=== PATIENT | male | born 1960 | race Caucasian/White ===

== ENCOUNTER → 2016-09-04 | Outpatient (CLI) | payer MEDICARE ==
--- NOTE | 2016-09-04 13:05 | MR ---
EXAMINATION TYPE: MR shoulder LT wo con DATE OF EXAM: 09/04/2016 9:42 AM COMPARISON: Prior shoulder MRI September 2015 HISTORY: RCT, left shoulder pain for years, prior surgery. TECHNIQUE: Multiplanar, multisequence imaging of the left shoulder is performed without contrast. FINDINGS: Rotator Cuff: There is been interval rotator cuff surgery, susceptibility artifact due to screws with in the proximal humeral head noted. Recurrent rotator cuff tear is present, there is retraction of th e supraspinatus tendon to the level of the acromioclavicular joint. Acromioclavicular Joint: Hypertrophic change is present. Glenohumeral Joint: The humerus is high riding. There is some remodeling of the glenohumeral joint. Labrum: Superior labrum shows some irregular signal and appearance suggestive of degenerative tear. S ubchondral geode formation present in the bony labrum, there is a joint effusion. Biceps Tendon: Not well seen Bone marrow signal: Marrow edema suspected within the humeral head although there may be reactive teddy nges, there is subchondral cystic change within the humeral head. Other: Distal acromial spur is present. Grade IV chondromalacia in the labral cartilage. IMPRESSION: Recurrent rotator cuff tear, postop changes. Additional findings above.
== END | disposition home or self-care (01) ==
LOC: RADMRIMAIN 09:09
PROVIDERS: ATTEND Orthopaedic Surgery
DX: M75.102 Unspecified rotator cuff tear or rupture of left shoulder, not specified as traumatic (principal); Z98.890 Other specified postprocedural states

== ENCOUNTER → 2017-09-12 | Outpatient (CLI) | payer MEDICARE ==
--- NOTE | 2017-09-12 15:41 | US ---
EXAMINATION TYPE: US thyroid st tissue head/neck DATE OF EXAM: 09/12/2017 COMPARISON: Prior carotid ultrasound July 25, 2017 CLINICAL HISTORY: E04.1 Thyroid Nodule. nodule seen on the left by previous carotid us in Aug 03 GLAND SIZE: Right Lobe: 4.9 x 1.3 x 1.8 cm Overall Parenchyma: heterogenous Left Lobe: 4.4 x 1.4 x 1.5 cm Overall Parenchyma: heterogeneous Isthmus Thickness: 0.3 cm NODULES RIGHT: # of nodules measured on right: 1 1. 0.6 X 0.4 x 0.6 cm cystic nodule at the upper pole with well-defined margins. This nodule is wi ervin than tall and shows . Prior size: DECISION SUPPORT MANAGER LEFT: # of nodules measured on left: 1 1. 1.5 X 1.3 x 1.1 cm mixed nodule at the lower pole with well-defined margins; . This nodule is w ider than tall and shows no intranodular vascularity. Prior size: DECISION SUPPORT MANAGER ISTHMUS: # of nodules measured in the isthmus: 0 Bilateral neck scanned, no evidence of lymphadenopathy. Thyroid gland is normal in size and heterogeneous appearance, there is 6 mm cystic nodule noted right thyroid lobe, there is larger 1.5 cm predominantly cystic nodule lower pole level left thyroid IMPRESSION: Thyroid gland is normal in size and heterogeneous in appearance with dominant 1.5 cm predominantly cy stic mixed nodule lower pole level noted. This correlates with recent carotid ultrasound lesion. Need to further investigate by possible biopsy should be based on clinical correlation.
== END | disposition home or self-care (01) ==
LOC: RADUSWWP 14:12
PROVIDERS: ATTEND Family Medicine
DX: E04.1 Nontoxic single thyroid nodule (principal)
CPT/HCPCS: 76536

== ENCOUNTER 2017-12-19 12:19 | Day surgery (SDC) | payer MEDICARE ==
[2017-12-19 12:50] VITALS: TEMP 98.1
[2017-12-19 13:47] VITALS: BP 111/56; PULSE 90; RESP 16
--- NOTE | 2017-12-19 13:53 | US ---
ULTRASOUND GUIDED FNA THYROID BIOPSY: CLINICAL HISTORY: Left thyroid nodule FINDINGS: The procedure was explained to the patient. The risks, complications, benefits and alternatives were discussed and any questions were answered. Informed consent was obtained. Patient was placed supin e on the ultrasound table and prepped and draped in the usual sterile fashion. Utilizing a 25 gauge needle, five passes were made into the requested thyroid nodule. Patient was stable throughout the procedure. Pathology is pending. All elements of maximal barrier technique were utilized. IMPRESSION: 1. Successful ultrasound guided FNA thyroid biopsy.
== END 2017-12-19 13:47 | disposition home or self-care (01) ==
LOC: RADPROMAIN 12:19
PROVIDERS: ATTEND Family Medicine
DX: E04.1 Nontoxic single thyroid nodule (principal)
CPT/HCPCS: 10022; 76942; 88173; 88305

== ENCOUNTER → 2018-03-25 | Outpatient (CLI) | payer MEDICARE ==
--- NOTE | 2018-03-25 16:46 | CONS ---
CONSULTATION This is a consultation note for sleep apnea. This is a 57-year-old male patient diagnosed having obstructive sleep apnea in 2009 with an AHI of 71 and currently he is using CPAP at a pressure of 10 cm of water. He is using a nasal pillow along with a chin strap. He has been on CPAP for many years. On and off he quit using the treatment; however, over the past 3-4 months he is back using the CPAP as the patient has become more symptomatic and he is snoring loud and he was having excessive hypersomnia and sleepiness during the day. The patient is going to bed around 9 p.m., wakes up between 3 to 4 a.m. in the morning. He averages around 6 hours of sleep. At times, he wakes up with dry mouth. No nocturia. Denies waking up choking, gasping for air. His weight has been essentially stable over the past 10 years without any significant weight gain or weight loss. PAST MEDICAL HISTORY: Obstructive sleep apnea, BPH, nasal polyps status post polypectomy, hypothyroidism, bronchial asthma and allergies. PAST SURGICAL HISTORY: Includes nasal polyp removal. DRUG ALLERGIES: Not known. He has got a HAY FEVER AND BEE STING ALLERGIES. OUTPATIENT MEDICATION: Includes tamsulosin, levothyroxine, Singulair, sildenafil, Claritin, Precose and ProAir. SOCIAL HISTORY: The patient is a nonsmoker. No history of alcohol. No history of IV drugs. FAMILY HISTORY: Negative for sleep apnea. REVIEW OF SYSTEMS: 12-point review of system was done. Positive findings are mentioned above history of present illness. He has been quite sleepy for many years and sleep apnea. Treatment with CPAP has improved his daytime sleepiness. He tries to sleep on his back. He takes it takes a few minutes to fall asleep. No dreams. No nightmares. No sleep paralysis. No hallucinations. No cataplexy. He has no sleepwalking or sleep talking. No restlessness in lower extremities. No anxiety or panic attacks. No palpitations. PHYSICAL EXAMINATION: BP is 111/77, pulse 76, respirations 16, temperature 98.4, saturation 98% on room air. Weight is 166, height 5 feet 7 inches, neck size is 15-1/2 inches. GENERAL APPEARANCE: Calm, comfortable. Head is atraumatic normocephalic. NECK: Supple. There is no JVD. No goiter or neck masses. LUNGS: Clear to auscultation. HEART: Sounds are regular. Normal S1, S2. No S3. No murmurs. ABDOMEN: Soft, nontender. No organomegaly. EXTREMITIES: No edema. No cyanosis or clubbing. IMPRESSION: 1. Symptomatic obstructive sleep apnea severe at baseline with an AHI of 71 currently on CPAP pressure of 10 cm of water. 2. Hypersomnia, improved with CPAP therapy. 3. Benign prostatic hypertrophy. 4. History of nasal polyposis with chronic rhinitis with post polypectomy. 5. Hypothyroidism. 6. Bronchial asthma. 7. Environmental allergies. PLAN: Continue the patient's CPAP supplies. I will provided the patient AirFit P10 small size nose pillows along with a chin strap. The patient has an older generation Respironics unit which will need to be upgraded at a later stage. This was suggested to him and he is not ready for upgrade yet as long as the machine is working and this may be done probably within next day or 2. CPAP supplies will be renewed. Compliancy will be followed up. We will continue to follow here in the sleep center. See me back in a year's time and follow up earlier if needed. MMODL / IJN: [id number] /
== END | disposition home or self-care (01) ==
LOC: SLEEP 14:01
PROVIDERS: ATTEND Internal Medicine Critical Care Medicine
DX: G47.33 Obstructive sleep apnea (adult) (pediatric) (principal); N40.0 Benign prostatic hyperplasia without lower urinary tract symptoms; E03.9 Hypothyroidism, unspecified; J45.909 Unspecified asthma, uncomplicated; Z91.048 Other nonmedicinal substance allergy status; Z99.89 Dependence on other enabling machines and devices; Z87.09 Personal history of other diseases of the respiratory system; Z98.890 Other specified postprocedural states
CPT/HCPCS: 99211

== ENCOUNTER → 2018-11-20 | Outpatient (CLI) | payer MEDICARE ==
--- NOTE | 2018-11-20 13:17 | US ---
EXAMINATION TYPE: US abdomen complete DATE OF EXAM: 11/20/2018 COMPARISON: Prior ultrasound abdomen 10/27/2013 CLINICAL HISTORY: R10.11 right upper quadrant pain, intermittent, severe for 3 days, now better. EXAM MEASUREMENTS: Liver Length: 11.3 cm Gallbladder Wall: Surgically absent CBD: 0.3 cm Spleen: 9.2 cm Right Kidney: 11.8 x 4.4 x 5.1 cm Left Kidney: 11.3 x 5.5 x 5.0 cm Pancreas: portions visualized wnl, partially obscured by overlying bowel gas Liver: wnl Gallbladder: Surgically absent Evidence for sonographic Becker's sign: no CBD: wnl Spleen: wnl Right Kidney: scattered echogenic foci, small echogenic foci suggestive stones vs. arterial calcific ations Left Kidney: scattered echogenic foci, small echogenic foci suggestive of stones vs. arterial calcifi cations Upper IVC: wnl Abd Aorta: mild atherosclerotic changes The liver is homogenous. The intrahepatic portion of the IVC and proximal abdominal aorta are within normal limits. There is no evidence of cholelithiasis. Common bile duct is unremarkable. The visu alized portions of the pancreas are homogenous. The spleen is unremarkable. Kidneys are symmetric a nd free of hydronephrosis, cortical medullary differentiation maintained. There is no ascites. IMPRESSION: Findings are similar to prior exam. Possible punctate nephrolithiasis or arterial calcifi cations. Postop change.
== END | disposition home or self-care (01) ==
LOC: RADUSWWP 09:37
PROVIDERS: ATTEND Family Medicine
DX: R10.11 Right upper quadrant pain (principal); Z98.890 Other specified postprocedural states
CPT/HCPCS: 76700

== ENCOUNTER 2020-04-20 09:47 | Day surgery (SDC) | payer MEDICARE ==
[2020-04-17 15:24] VITALS: BMI 26.4
[~2020-04-20 09:47] MED LIST: LACTATED RINGERS 1,000 ML IV SCH
[2020-04-20 10:34] VITALS: RESP 16; TEMP 98.1
[2020-04-20] MEDS ORDERED: PROPOFOL 10 MG/ML 20 ML VIAL IV ONE (10:45)
[2020-04-20] MEDS ORDERED: LIDOCAINE 1% INJ 10MG/ML (20 ML MDV) ONE (10:45)
--- NOTE | 2020-04-20 11:03 | P.PCN ---
Date of Procedure: 04/20/20 Procedure(s) Performed: BRIEF HISTORY: Patient is a 59-year-old pleasant white male scheduled for an elective colonoscopy as a part of evaluation of prior history of colon polyps. His last colonoscopy was 4 years ago. PROCEDURE PERFORMED: Colonoscopy with snare polypectomy. PREOPERATIVE DIAGNOSIS: History of colon polyps. IV sedation per Anesthesia. PROCEDURE: After informed consent was obtained, the patient, was brought into the endoscopy unit. IV sedation was administered by Anesthesia under continuous monitoring. Digital rectal examination was normal. Initially the Olympus CF-160 flexible video colonoscope was then inserted in the rectum, gradually advanced into the cecum without any difficulty. Careful examination was performed as the scope was gradually being withdrawn. Ileocecal valve and the appendiceal orifice were visualized and appeared normal. Prep was excellent. Mucosa of the cecum, ascending colon, transverse colon, descending colon, sigmoid colon, and rectum appeared normal. In the proximal rectum there was a 1.5 cm broad-based polyp removed by snare polypectomy. Retroflexion was performed in the rectum and no lesions were seen. The patient tolerated the procedure well. IMPRESSION: 1.5 cm broad-based proximal rectal polyp status post polypectomy Rest of the colon appeared normal RECOMMENDATIONS: Findings of this examination were discussed with the patient as well as his family. He was advised to follow with the biopsy results. If the biopsy shows an adenoma he can have a repeat colonoscopy in 3 years.
[2020-04-20 11:22] VITALS: BP 126/85; PULSE 62
== END 2020-04-20 12:03 | disposition home or self-care (01) ==
LOC: ORWHC2ENDO 09:47
PROVIDERS: ATTEND Internal Medicine Gastroenterology
DX: Z12.11 Encounter for screening for malignant neoplasm of colon (principal); D12.8 Benign neoplasm of rectum; Z86.010 Personal history of colon polyps; I10 Essential (primary) hypertension; E78.5 Hyperlipidemia, unspecified; J45.909 Unspecified asthma, uncomplicated; G47.33 Obstructive sleep apnea (adult) (pediatric); E07.9 Disorder of thyroid, unspecified; M19.90 Unspecified osteoarthritis, unspecified site; K21.9 Gastro-esophageal reflux disease without esophagitis; Z87.891 Personal history of nicotine dependence; Z88.0 Allergy status to penicillin; Z79.899 Other long term (current) drug therapy; Z98.890 Other specified postprocedural states
CPT/HCPCS: 88305; 45385; J2001; J2704

== ENCOUNTER 2020-05-18 09:21 | Day surgery (SDC) | payer MEDICARE ==
[2020-05-17 08:55] VITALS: BMI 25.3
--- NOTE | 2020-05-18 06:51 | P.GSHP ---
History of Present Illness H&P Date: 05/18/20 CHIEF COMPLAINT: Scalp mass HISTORY OF PRESENT ILLNESS: Leodan Duran is a 59-year-old male who comes in for the first time in consultation due to persistent cyst along the scalp that has been ongoing for over one year. He reports that it had itched in the past. No reports of drainage. No reports of prior events. Separately, he recently had a colonoscopy within the last two weeks with history of polyps. He does have a family history of skin cancer whereby his father was a gravel roofer and had multiple skin lesions. He reports multiple cuts on the hand. PAST MEDICAL HISTORY: Please see list. PAST SURGICAL HISTORY: Please see list. MEDICATIONS: Please see list. ALLERGIES: Please see list. SOCIAL HISTORY: No illicit drug use FAMILY HISTORY: No reports of Crohn disease or ulcerative colitis. REVIEW OF ORGAN SYSTEMS: Additionally reports: CONSTITUTIONAL: No fevers or chills. No recent weight loss. EYES: Denies any trouble with vision. No glasses. HEENT: No difficulties with hearing. No nosebleeds. No difficulty swallowing. PHYSICAL EXAM: VITAL SIGNS: Stable Patient is a 59-year-old female. Skin: 1.5 cm lesion along the right parietal scalp. No lymph nodes noted. The rest of skin surveillance performed along the anterior chest, back, and arms without evidence of malignancy. A few benign nevus along the back, less than 2 mm. CONSTITUTIONAL: Well developed and in no acute distress. Vitals reviewed. EYES: Conjuctivae without sclera icterus. Pupils are equally round and reactive to light. Extraocular movements grossly intact. HEAD, EARS, NOSE, THROAT: Moist buccal mucosa. Head is atraumatic, normocephalic. Hears conversational speech. No nasal drainage. NECK: Supple. No JV distention. No thyroidomegaly. RESPIRATORY: Non-labored respirations and equal bilateral excursions. No gross wheezes. CARDIOVASCULAR: Regular rate and rhythm. Extremities without moderate edema. Palpable 2+ radial pulses. ABDOMEN: No hepatomegaly. Soft. Non-tender. Nondistended. LYMPH: No neck lymphadenopathy. No axillary lymphadenopathy. MUSCULOSKELETAL: Nail and fingers with good capillary refill. NEUROLOGIC: Cranial nerves I through XII grossly intact. Sensation upper and extremities intact. No focal or lateralizing signs. PSYCH: Appropriate affect. Alert and oriented to person, place and time. Displays appropriate insight. ASSESSMENT: 1. Epidermoid cyst of the scalp. PLAN: 1. Excision of scalp neoplasm described. 2. As the lesion is on the scalp, likely general anesthetic recommended and is elevated risk. Past Medical History Past Medical History: Asthma, GERD/Reflux, Hyperlipidemia, Hypertension, Osteoarthritis (OA), Skin Disorder, Sleep Apnea/CPAP/BIPAP, Thyroid Disorder Additional Past Medical History / Comment(s): Lumbar herniated disc, heart mumur, hypothyroidism, cpap set at 2, psoriasis, hx polyps. History of Any Multi-Drug Resistant Organisms: None Reported Past Surgical History: Cholecystectomy, Orthopedic Surgery Additional Past Surgical History / Comment(s): Bilateral shoulder rotator cuff repair and L shoulder has retorn and cannot be repaired. Lumbar back epidural steroid injections and L shoulder steroid injections. Past Anesthesia/Blood Transfusion Reactions: No Reported Reaction Additional Past Anesthesia/Blood Transfusion Reaction / Comment(s): Pt has never recieved blood. Past Psychological History: No Psychological Hx Reported Smoking Status: Former smoker Past Alcohol Use History: None Reported Additional Past Alcohol Use History / Comment(s): Smoker off and on since high school, quit in 2019. Past Drug Use History: None Reported - Past Family History Mother Family Medical History: Coronary Artery Disease (CAD), Dementia Additional Family Medical History / Comment(s): Mother is alive and 83 yrs old. Father Family Medical History: Cancer, CVA/TIA, Osteoarthritis (OA) Additional Family Medical History / Comment(s): Father is alive at age 92 yrs old. Skin melanoma. Medications and Allergies Home Medications Medication Instructions Recorded Confirmed Type Clobetasol Propionate [Temovate 1 applic TOPICAL BID 09/08/14 05/17/20 History 0.05% Cream] Dovonex 0.005% Cream 1 applic TOPICAL BID 09/08/14 05/17/20 History Levothyroxine Sodium [Levoxyl] 88 mcg PO QAM 09/08/14 05/17/20 History Lisinopril [Prinivil] 5 mg PO QAM 09/08/14 05/17/20 History Loratadine [Claritin] 10 mg PO DAILY 09/08/14 05/17/20 History Metoclopramide [Reglan] 10 mg PO TID PRN 09/08/14 05/17/20 History Omeprazole [PriLOSEC] 20 mg PO AC-BRKFST 09/08/14 05/17/20 History mg Trisilicate/Alh/Nahco3/Aa 1 each PO HS PRN 09/08/14 05/17/20 History [Gaviscon 80-14.2 mg Tab Chew] Albuterol Inhaler [Ventolin Hfa 1 puff INHALATION DAILY 04/17/20 05/17/20 History Inhaler] Tamsulosin [Flomax] 0.4 mg PO DAILY 04/17/20 05/17/20 History Allergies Allergy/AdvReac Type Severity Reaction Status Date / Time Penicillins Allergy Severe Unknown Verified 04/20/20 10:25 Childhood Beef Containing Products AdvReac Stomach Verified 04/20/20 10:25 Cramps
[~2020-05-18 09:21] MED LIST changes: +CLINDAMYCIN 600 MG in DEXTROSE 5% IN WATER 50 ML IVPB STA; +DEXAMETHASONE SOD PHOSPHATE 10 MG/ML 1 ML VIAL IV ONE; +HYDROmorphone 0.5 MG/0.5 ML SYRINGE IVP PRN; +ONDANSETRON 4 MG/2 ML VIAL IVP ONE; +Pre Op ABX Message 1 EACH MISC MISCELLANE ONE
[2020-05-18 09:38] VITALS: RESP 16
[2020-05-18] MEDS ORDERED: SUCCINYLCHOLINE CHLORIDE 100 MG/5 ML SYR IV ONE (11:15)
[2020-05-18] MEDS ORDERED: fentaNYL (PF) 50 MCG/ML 2 ML AMP ONE (11:15)
[2020-05-18] MEDS ORDERED: MIDAZOLAM 2 MG/2 ML VIAL ONE (11:15)
[2020-05-18] MEDS ORDERED: PHENYLEPHRINE-0.9% NACL SYG 1 MG/10 ML SYRINGE ONE (11:15)
[2020-05-18] MEDS ORDERED: LIDOCAINE 1% INJ 10MG/ML (20 ML MDV) ONE (11:15)
[2020-05-18] MEDS ORDERED: PROPOFOL 10 MG/ML 20 ML VIAL IV ONE (11:15)
[2020-05-18] MEDS ORDERED: LIDOCAINE 1%-EPI 1:100,000 20 ML VIAL SQ ONE (11:48)
[2020-05-18 12:34] VITALS: TEMP 96.9
--- NOTE | 2020-05-18 12:42 | P.OP ---
Date of Procedure: 05/18/20 Description of Procedure: SURGEON: NEREIDA SLOAN MD WAX BLENDER: None. PREOPERATIVE DIAGNOSES: 1. Right parietal scalp tumor 2. Hypothyroidism 3. Asthma 4. Obstructive uropathy 5. Gastroesophageal reflux disease 6. Hypertensive heart disease 7. Obstructive sleep apnea POSTOPERATIVE DIAGNOSES: 1. Right parietal scalp cyst, 2 cm, subcutaneous 2. Hypothyroidism 3. Asthma 4. Obstructive uropathy 5. Gastroesophageal reflux disease 6. Hypertensive heart disease 7. Obstructive sleep apnea PROCEDURES PERFORMED: 1. Excision of deep subcutaneous right parietal cyst, 2 cm 2. Intermediate closure scalp incision, 3 cm Anesthesia: GETA, local Estimated Blood Loss (ml): 10 Pathology: other (scalp mass) Condition: stable Disposition: same day COMPLICATIONS: None. Operative Findings: 1. Excision of deep subcutaneous tumor, 2-cm INDICATIONS: The patient is a 59-year-old male who presents with symptomatic right scalp tumor. Benefits and risks of surgical intervention were described including bleeding, infection. Informed consent was obtained. DESCRIPTION OR PROCEDURE: In the preoperative area, the area of concern was marked with indelible marker. Patient was brought into the operating room. After general induction, he was positioned in left lateral decubitus position. The scalp was prepped and draped in a standard sterile fashion. Timeout protocol was confirmed with the surgical team regarding the patient's name, procedure to be performed including preoperative medications. DVT prophylaxis was confirmed. A field block was placed of the scalp. Hair was controlled using lubricant without shaving. A longitudinal incision was made using #15 blade into the deep subcutaneous tissue to the fascia. Electro-Bovie cautery was used to incise to the fascia with dissection and elevation of the mass including wall of the cyst. Skin flaps were elevated and developed circumferentially. Interrupted subcuticular sutures of 3-0 Vicryl was placed for the deep subcutaneous tissue. Final running suture of 3-0 Prolene was placed to close the dermis. The skin was cleansed with hydrogen peroxide followed by bacitracin ointment along the closure. At the end of the procedure, needle, sponge, and instrument count was verified correct by surgical oncologist. The patient tolerated the procedure well. Plan - Discharge Summary Discharge Rx Participant: No New Discharge Prescriptions: New Acetaminophen Tab [Tylenol Tab] 500 mg PO Q6H PRN #30 tablet PRN Reason: Pain Ibuprofen [Motrin] 600 mg PO Q8HR PRN #30 tab PRN Reason: Pain Continue Metoclopramide [Reglan] 10 mg PO TID PRN PRN Reason: stomach upset Loratadine [Claritin] 10 mg PO DAILY mg Trisilicate/Alh/Nahco3/Aa [Gaviscon 80-14.2 mg Tab Chew] 1 each PO HS PRN PRN Reason: heartburn Omeprazole [PriLOSEC] 20 mg PO AC-BRKFST Lisinopril [Prinivil] 5 mg PO QAM Levothyroxine Sodium [Levoxyl] 88 mcg PO QAM Dovonex 0.005% Cream 1 applic TOPICAL BID Clobetasol Propionate [Temovate 0.05% Cream] 1 applic TOPICAL BID Tamsulosin [Flomax] 0.4 mg PO DAILY Albuterol Inhaler [Ventolin Hfa Inhaler] 1 puff INHALATION DAILY Discharge Medication List Clobetasol Propionate [Temovate 0.05% Cream] 1 applic TOPICAL BID 09/08/14 [History] Dovonex 0.005% Cream 1 applic TOPICAL BID 09/08/14 [History] Levothyroxine Sodium [Levoxyl] 88 mcg PO QAM 09/08/14 [History] Lisinopril [Prinivil] 5 mg PO QAM 09/08/14 [History] Loratadine [Claritin] 10 mg PO DAILY 09/08/14 [History] Metoclopramide [Reglan] 10 mg PO TID PRN 09/08/14 [History] Omeprazole [PriLOSEC] 20 mg PO AC-BRKFST 09/08/14 [History] mg Trisilicate/Alh/Nahco3/Aa [Gaviscon 80-14.2 mg Tab Chew] 1 each PO HS PRN 09/08/14 [History] Albuterol Inhaler [Ventolin Hfa Inhaler] 1 puff INHALATION DAILY 04/17/20 [History] Tamsulosin [Flomax] 0.4 mg PO DAILY 04/17/20 [History] Acetaminophen Tab [Tylenol Tab] 500 mg PO Q6H PRN #30 tablet 05/18/20 [Rx] Ibuprofen [Motrin] 600 mg PO Q8HR PRN #30 tab 05/18/20 [Rx] Follow up Appointment(s)/Referral(s): Nereida Sloan MD [STAFF PHYSICIAN] - 05/23/20 4:45 pm Patient Instructions/Handouts: *Surgery [facility] - (Anesthesia) Discharge Instructions Outpatient Surgery, Scalp Lesion (GEN), Cold Compress or Soak (DC) Activity/Diet/Wound Care/Special Instructions: APPLY BACITRACIN OINTMENT DAILY Use ice along the dressing to minimize bruising. May gently wash around the dressing with baby shampoo Sleep on elevated pillows at least 2-3 to prevent swelling around the face and eyes. Bruising around the eyes resolve within 1-2 weeks. Please take Tylenol scheduled for next 2-3 day Discharge Disposition: HOME SELF-CARE
[2020-05-18 13:42] VITALS: BP 105/65; PULSE 73
== END 2020-05-18 14:18 | disposition home or self-care (01) ==
LOC: OR 09:21
PROVIDERS: ATTEND Surgery Plastic and Reconstructive Surgery
DX: L72.0 Epidermal cyst (principal); I11.9 Hypertensive heart disease without heart failure; J45.909 Unspecified asthma, uncomplicated; E78.5 Hyperlipidemia, unspecified; M19.90 Unspecified osteoarthritis, unspecified site; L40.9 Psoriasis, unspecified; G47.33 Obstructive sleep apnea (adult) (pediatric); E03.9 Hypothyroidism, unspecified; K21.9 Gastro-esophageal reflux disease without esophagitis; N13.9 Obstructive and reflux uropathy, unspecified; Z88.0 Allergy status to penicillin; Z90.49 Acquired absence of other specified parts of digestive tract; Z79.890 Hormone replacement therapy; Z79.899 Other long term (current) drug therapy; Z99.89 Dependence on other enabling machines and devices; Z98.890 Other specified postprocedural states; Z87.891 Personal history of nicotine dependence; Z82.49 Family history of ischemic heart disease and other diseases of the circulatory system; Z81.8 Family history of other mental and behavioral disorders; Z80.8 Family history of malignant neoplasm of other organs or systems; Z82.61 Family history of arthritis; Z91.018 Allergy to other foods
CPT/HCPCS: 88304; 11422; 12032; J2250; J1100; J2405; J2001; J3010; J2370; J0330; J2704

== ENCOUNTER 2024-11-17 19:32 | Emergency (ER) | payer MEDICARE ==
[2024-11-17 19:38] VITALS: PULSE 67; TEMP 98
--- NOTE | 2024-11-17 19:58 | ED ---
ENT HPI - General Chief complaint: Dental/Oral Stated complaint: throat swelling, abscess Time Seen by Provider: 11/17/24 19:39 Source: patient, RN notes reviewed Mode of arrival: ambulatory Limitations: no limitations - History of Present Illness Initial comments: This is a 63-year-old male presenting to the emergency department with referral from primary care provider's office for concern of throat pain. Patient states that yesterday morning when he woke up he began to experience pain of the right side of his throat that has worsened and states that he has been having difficult time swallowing over the past day. Patient was evaluated by his prima care provider where he is intact reports emergency department for further evaluation. He endorses chills with no reported fevers. Denies cough, rhinorrhea, congestion. Patient states that he is scheduled for multiple teeth to be extracted in the upcoming weeks. - Related Data Home Medications Medication Instructions Recorded Confirmed Clobetasol Propionate [Temovate 1 applic TOPICAL BID 09/08/14 05/17/20 0.05% Cream] Dovonex 0.005% Cream 1 applic TOPICAL BID 09/08/14 05/17/20 Levothyroxine Sodium [Levoxyl] 88 mcg PO QAM 09/08/14 05/17/20 Lisinopril [Prinivil] 5 mg PO QAM 09/08/14 05/17/20 Loratadine [Claritin] 10 mg PO DAILY 09/08/14 05/17/20 Metoclopramide [Reglan] 10 mg PO TID PRN 09/08/14 05/17/20 Omeprazole [PriLOSEC] 20 mg PO AC-BRKFST 09/08/14 05/17/20 mg Trisilicate/Alh/Nahco3/Aa 1 each PO HS PRN 09/08/14 05/17/20 [Gaviscon 80-14.2 mg Tab Chew] Albuterol Inhaler [Ventolin Hfa 1 puff INHALATION DAILY 04/17/20 05/17/20 Inhaler] Tamsulosin [Flomax] 0.4 mg PO DAILY 04/17/20 05/17/20 Previous Rx's Medication Instructions Recorded Acetaminophen Tab [Tylenol Tab] 500 mg PO Q6H PRN #30 tablet 05/18/20 Ibuprofen [Motrin] 600 mg PO Q8HR PRN #30 tab 05/18/20 clindamycin HCL 300 mg PO QID #40 cap 11/17/24 Allergies Allergy/AdvReac Type Severity Reaction Status Date / Time Penicillins Allergy Severe Unknown Verified 11/17/24 19:38 Childhood Beef Containing Products AdvReac Stomach Verified 11/17/24 19:38 Cramps Review of Systems ROS Statement: Those systems with pertinent positive or pertinent negative responses have been documented in the HPI. ROS Other: All systems not noted in ROS Statement are negative. Past Medical History Past Medical History: Asthma, GERD/Reflux, Hyperlipidemia, Hypertension, Osteoarthritis (OA), Skin Disorder, Sleep Apnea/CPAP/BIPAP, Thyroid Disorder Additional Past Medical History / Comment(s): Lumbar herniated disc, heart mumur, hypothyroidism, cpap set at 2, psoriasis, hx polyps. History of Any Multi-Drug Resistant Organisms: None Reported Past Surgical History: Cholecystectomy, Orthopedic Surgery Additional Past Surgical History / Comment(s): Bilateral shoulder rotator cuff repair and L shoulder has retorn and cannot be repaired. Lumbar back epidural steroid injections and L shoulder steroid injections. Past Anesthesia/Blood Transfusion Reactions: No Reported Reaction Additional Past Anesthesia/Blood Transfusion Reaction / Comment(s): Pt has never recieved blood. Past Psychological History: No Psychological Hx Reported Smoking Status: Former smoker Past Alcohol Use History: Occasional Past Drug Use History: None Reported - Past Family History Mother Family Medical History: Coronary Artery Disease (CAD), Dementia Additional Family Medical History / Comment(s): Mother is alive and 83 yrs old. Father Family Medical History: Cancer, CVA/TIA, Osteoarthritis (OA) Additional Family Medical History / Comment(s): Father is alive at age 92 yrs old. Skin melanoma. General Exam Limitations: no limitations General appearance: alert, in no apparent distress Expanded Teeth exam: Present: dental caries, fractured tooth #, dental tenderness #. Absent: normal inspection Throat exam: other (posterior oropharynx right sided erythema and mild edema, unable to fully visualize tonsils bilatearlly) Neck exam: Present: normal inspection. Absent: tenderness, meningismus, lymphadenopathy Respiratory exam: Present: normal lung sounds bilaterally. Absent: respiratory distress, wheezes, rales, rhonchi, stridor Cardiovascular Exam: Present: regular rate, normal rhythm, normal heart sounds. Absent: systolic murmur, diastolic murmur, rubs, gallop, clicks GI/Abdominal exam: Present: soft, normal bowel sounds. Absent: distended, tenderness, guarding, rebound, rigid Extremities exam: Present: normal inspection, full ROM, normal capillary refill. Absent: tenderness, pedal edema, joint swelling, calf tenderness Back exam: Present: normal inspection Course Vital Signs 11/17/24 11/17/24 19:35 21:52 Temperature 98 F Pulse Rate 67 67 Respiratory 18 16 Rate Blood Pressure 142/88 143/89 O2 Sat by Pulse 99 100 Oximetry Medical Decision Making - Medical Decision Making Was pt. sent in by a medical professional or institution (, PA, [employer], urgent care, hospital, or penitentiary...) When possible be specific @ -Patient was advised by primary care provider to report emergency room for further evaluation of throat swelling difficulty swallowing. Did you speak to anyone other than the patient for history (EMS, parent, family, police, friend...)? What history was obtained from this source @ -No Did you review nursing and triage notes (agree or disagree)? Why? @ -I reviewed and agree with nursing and triage notes Were old charts reviewed (outside hosp., previous admission, EMS record, old EKG, old radiological studies, urgent care reports/EKG's, penitentiary records)? Report findings @ -No old charts were reviewed Differential Diagnosis (chest pain, altered mental status, abdominal pain women, abdominal pain men, vaginal bleeding, weakness, fever, dyspnea, syncope, headache, dizziness, GI bleed, back pain, seizure, CVA, palpatations, mental health, musculoskeletal)? @ -Peritonsillar abscess, strep throat, influenza A, pulpitis, dental abscess, this list is not all inclusive EKG interpreted by me (3pts min.). @ -None X-rays interpreted by me (1pt min.). @ -None done CT interpreted by me (1pt min.). @ -CT soft tissue of the neck no evidence of a fluid collection or abscess, patent airway. There is no gross abnormality noted of the parotid or wahl bmandibular glands U/S interpreted by me (1pt. min.). @ -None done What testing was considered but not performed or refused? (CT, X-rays, U/S, labs)? Why? @ -None What meds were considered but not given or refused? Why? @ -None Did you discuss the management of the patient with other professionals (professionals i.e. DrAnn, PA, [employer], lab, RT, psych nurse, social media developer, vegetable canner, teacher, property officer, casework supervisor)? Give summary @ -No Was smoking cessation discussed for >3mins.? @ -No Was critical care preformed (if so, how long)? @ -No Were there social determinants of health that impacted care today? How? (Homelessness, low income, unemployed, alcoholism, drug addiction, transport ation, low edu. Level, literacy, decrease access to med. care, fdc, rehab)? @ -No Was there de-escalation of care discussed even if they declined (Discuss DNR or withdrawal of care, Hospice)? DNR status @ -No What co-morbidities impacted this encounter? (DM, HTN, Smoking, COPD, CAD, Cancer, CVA, ARF, Chemo, Hep., AIDS, mental health diagnosis, sleep apnea, morbid obesity)? @ -None Was patient admitted / discharged? Hospital course, mention meds given and route, prescriptions, significant lab abnormalities, going to OR and other pertinent info. @ -discharged. 63-year-old male presenting to emergency room with referral from primary care provider with concern for throat swelling and difficulty swallowing. Unable to comprehensive visualize patient's posterior oropharynx. Patient overall has extremely poor dentition. He is offered pain medication however declined. Patient is tolerating oral secretions and in no signs of respiratory distress. His vitals are stable. Lab testing markable for mild leukocytosis 11.8 with left shift neutrophils 9.1. CRP mildly elevated at 5.6. Viral testing and strep not detected. CT no evidence of collection or abscess, patent airway. Patient is provided with antibiotics for dental infection instructed follow-up with dentist as scheduled. Case discussed with Dr. Randle Undiagnosed new problem with uncertain prognosis? @ -No Drug Therapy requiring intensive monitoring for toxicity (Heparin, Nitro, Insulin, Cardizem)? @ -No Were any procedures done? @ -No Diagnosis/symptom? @ -Dental pain, fractured tooth Acute, or Chronic, or Acute on Chronic? @ -Acute Uncomplicated (without systemic symptoms) or Complicated (systemic symptoms)? @ -Uncomplicated Side effects of treatment? @ -No Exacerbation, Progression, or Severe Exacerbation? @ -No Poses a threat to life or bodily function? How? (Chest pain, [place], [place], pneumonia, PE, COPD, DKA, ARF, appy, cholecystitis, CVA, Diverticulitis, Homicidal, Suicidal, threat to staff... and all critical care pts) @ -No - Lab Data Result diagrams: 11/17/24 20:09 11/17/24 20:09 Lab Results 11/17/24 11/17/24 11/17/24 Range/Units 20:09 20:09 20:09 WBC 11.8 H (3.8-10.6) k/uL RBC 4.42 (4.30-5.90) m/uL Hgb 14.0 (13.0-17.5) gm/dL Hct 43.7 (39.0-53.0) % MCV 98.8 (80.0-100.0) fL MCH 31.8 (25.0-35.0) pg MCHC 32.2 (31.0-37.0) g/dL RDW 12.5 (11.5-15.5) % Plt Count 259 (150-450) k/uL MPV 7.5 Neutrophils % 77 % Lymphocytes % 13 % Monocytes % 7 % Eosinophils % 1 % Basophils % 1 % Neutrophils # 9.1 H (1.3-7.7) k/uL Lymphocytes # 1.5 (1.0-4.8) k/uL Monocytes # 0.8 (0-1.0) k/uL Eosinophils # 0.1 (0-0.7) k/uL Basophils # 0.1 (0-0.2) k/uL Sodium 134 L (137-145) mmol/L Potassium 4.1 (3.5-5.1) mmol/L Chloride 102 (98-107) mmol/L Carbon Dioxide 27 (22-30) mmol/L Anion Gap 5 mmol/L BUN 14 (9-20) mg/dL Creatinine 0.72 (0.66-1.25) mg/dL Est GFR (CKD-EPI)AfAm >90 (>60 ml/min/1.73 sqM) Est GFR (CKD-EPI)NonAf >90 (>60 ml/min/1.73 sqM) Glucose 97 (74-99) mg/dL Plasma Lactic Acid Patricio 0.9 (0.7-2.0) mmol/L Calcium 8.7 (8.4-10.2) mg/dL Total Bilirubin 0.7 (0.2-1.3) mg/dL AST 18 (17-59) U/L ALT 19 (4-49) U/L Alkaline Phosphatase 55 (38-126) U/L C-Reactive Protein 5.6 H (<1.0) mg/dL Total Protein 5.9 L (6.3-8.2) g/dL Albumin 3.5 (3.5-5.0) g/dL Influenza Type A (PCR) (Not Detectd) Influenza Type B (PCR) (Not Detectd) RSV (PCR) (Not Detectd) SARS-CoV-2 (PCR) (Not Detectd) Group A Strep (PCR) (Not Detectd) 11/17/24 11/17/24 Range/Units 20:09 20:09 WBC (3.8-10.6) k/uL RBC (4.30-5.90) m/uL Hgb (13.0-17.5) gm/dL Hct (39.0-53.0) % MCV (80.0-100.0) fL MCH (25.0-35.0) pg MCHC (31.0-37.0) g/dL RDW (11.5-15.5) % Plt Count (150-450) k/uL MPV Neutrophils % % Lymphocytes % % Monocytes % % Eosinophils % % Basophils % % Neutrophils # (1.3-7.7) k/uL Lymphocytes # (1.0-4.8) k/uL Monocytes # (0-1.0) k/uL Eosinophils # (0-0.7) k/uL Basophils # (0-0.2) k/uL Sodium (137-145) mmol/L Potassium (3.5-5.1) mmol/L Chloride (98-107) mmol/L Carbon Dioxide (22-30) mmol/L Anion Gap mmol/L BUN (9-20) mg/dL Creatinine (0.66-1.25) mg/dL Est GFR (CKD-EPI)AfAm (>60 ml/min/1.73 sqM) Est GFR (CKD-EPI)NonAf (>60 ml/min/1.73 sqM) Glucose (74-99) mg/dL Plasma Lactic Acid Patricio (0.7-2.0) mmol/L Calcium (8.4-10.2) mg/dL Total Bilirubin (0.2-1.3) mg/dL AST (17-59) U/L ALT (4-49) U/L Alkaline Phosphatase (38-126) U/L C-Reactive Protein (<1.0) mg/dL Total Protein (6.3-8.2) g/dL Albumin (3.5-5.0) g/dL Influenza Type A (PCR) Not Detected (Not Detectd) Influenza Type B (PCR) Not Detected (Not Detectd) RSV (PCR) Not Detected (Not Detectd) SARS-CoV-2 (PCR) Not Detected (Not Detectd) Group A Strep (PCR) NOT DETECTED (Not Detectd) Disposition Clinical Impression: Pain, dental Disposition: HOME SELF-CARE Condition: Good Instructions (If sedation given, give patient instructions): Toothache (ED) Additional Instructions: Please return to the Emergency Department if symptoms worsen or any other concerns. Prescriptions: clindamycin HCL 300 mg PO QID #40 cap Is patient prescribed a controlled substance at d/c from ED?: No Referrals: Lalo Maher MD [Primary Care Provider] - 1-2 days Time of Disposition: 21:38
[2024-11-17 20:23] LABS: Basophils # (A) 0.1 k/uL (0-0.2); Basophils % (A) 1 %; Eosinophils # (A) 0.1 k/uL (0-0.7); Eosinophils % (A) 1 %; HCT 43.7 % (39.0-53.0); Lymphocytes # (A) 1.5 k/uL (1.0-4.8); Lymphocytes % (A) 13 %; MCH 31.8 pg (25.0-35.0); MCHC 32.2 g/dL (31.0-37.0); MCV 98.8 fL (80.0-100.0); Mean Platelet Volume 7.5; Monocytes # (A) 0.8 k/uL (0-1.0); Monocytes % (A) 7 %; Neutrophils # (A) 9.1 k/uL (1.3-7.7); Neutrophils % (A) 77 %; Platelet Count 259 k/uL (150-450); RBC 4.42 m/uL (4.30-5.90); RDW 12.5 % (11.5-15.5); WBC 11.8 k/uL (3.8-10.6)
[2024-11-17 20:42] LABS: African American GFR (CKD) >90 (>60 ml/min/1.73 sqM); Anion Gap 5 mmol/L; Blood Urea Nitrogen 14 mg/dL (9-20); Calcium 8.7 mg/dL (8.4-10.2); Carbon Dioxide 27 mmol/L (22-30); Chloride 102 mmol/L (98-107); Glucose 97 mg/dL (74-99); Non-African American GFR(CKD) >90 (>60 ml/min/1.73 sqM); Potassium 4.1 mmol/L (3.5-5.1); Sodium 134 mmol/L (137-145); Total Protein 5.9 g/dL (6.3-8.2)
[2024-11-17 20:43] LABS: ALT 19 U/L (4-49); AST 18 U/L (17-59); Albumin 3.5 g/dL (3.5-5.0); Alkaline Phosphatase 55 U/L (38-126); C Reactive Protein 5.6 mg/dL (<1.0); Total Bilirubin 0.7 mg/dL (0.2-1.3)
[2024-11-17 21:01] LABS: Influenza A Not Detected (Not Detectd); Influenza B Not Detected (Not Detectd); RSV Not Detected (Not Detectd)
--- NOTE | 2024-11-17 21:26 | CT ---
EXAMINATION TYPE: CT soft tissue neck w con DATE OF EXAM: 11/17/2024 COMPARISON: NONE CLINICAL INDICATION: Male, 63 years old with history of r/o peritonsillar abscess right side, c/o sor e throat and pain. TECHNIQUE: CT scan of the neck is performed with IV Contrast, patient injected with 100 ml mL of Iso allie 300, axial images are obtained, coronal and sagittal reformatted images are reviewed. CT DLP: 265.2 mGycm. Automated Exposure Control for Dose Reduction was Utilized. FINDINGS: Airway: Some prominence of the palatine tonsils. No well-formed fluid collection or abscess identifie d. Parotid/submandibular glands: No gross abnormality seen. Carotid/Vascular Structures: Moderate to severe plaque in right carotid bulb extends into proximal in ternal carotid artery without hemodynamically significant stenosis. More mild peripheral plaque proxi mal left internal carotid artery is noted. Vertebral artery is noted. Osseous Structures: . There is grade 1 retrolisthesis C4 on C5, C5 on C6, and C6 on C7. There is mode rate disc space narrowing at C5-C6 and C6-C7 levels. Other: There is 2.5 cm mucous retention cyst or polyp in the inferior right maxillary sinus coronal i mage 22. Scattered prominent but subcentimeter bilateral neck lymph nodes. No greater than 1 cm neck adenopathy is seen. IMPRESSION: No well-formed thick-walled fluid collection or abscess seen. Patent airway noted. [facility], , 11/17/2024 9:24 PM
[2024-11-17] MEDS: KETOROLAC 15 MG/ML 1 ML VIAL IVP STA (21:45)
[2024-11-17] MEDS: CLINDAMYCIN 150 MG CAP PO STA (21:46)
[2024-11-17] MEDS: DEXAMETHASONE SOD PHOSPHATE 4 MG/ML 1 ML VIAL IVP STA (21:46)
[2024-11-17 21:52] VITALS: BP 143/89; RESP 16
== END 2024-11-17 21:53 | disposition home or self-care (01) ==
LOC: EC 19:32
DX: K08.89 Other specified disorders of teeth and supporting structures (principal); Z88.0 Allergy status to penicillin; Z91.014 Allergy to mammalian meats
CPT/HCPCS: 36415; 87651; 80053; 83605; 85025; 86140; 87636; 70491; 99284; 96374; 96375; J1100; J1885; Q9967

== ENCOUNTER 2024-11-22 19:24 | Inpatient (IN) | payer MEDICARE ==
--- NOTE | 2024-11-22 20:21 | ED ---
Recheck HPI - General Chief Complaint: ENT Stated Complaint: Throat Swelling Time Seen by Provider: 11/22/24 19:44 Source: patient, RN notes reviewed, old records reviewed Mode of arrival: ambulatory Limitations: no limitations - History of Present Illness Initial Comments: This is a 64-year-old male to the ER for evaluation patient presents today for e valuation regards to severe throat pain patient was here about a week ago for severe throat pain but pain is just been getting progressively worse he has been taking antibiotics and having now have an difficult time swallowing secondary to severe pain. He does feel feverish today thought it was a dental infection originally but is not appear to be improving as far as the swelling goes and is upper both lesions severe pain MD Complaint: wound re-check, needs IV antibiotics -: week(s) Returns Today for: persistent/worsening pain related to initial visit Symptoms Since Prior Visit: worsening pain Associated Symptoms: none Treatments Prior to Arrival: other (0) - Related Data Home Medications Medication Instructions Recorded Confirmed Levothyroxine Sodium [Levoxyl] 88 mcg PO DAILY 09/08/14 11/23/24 Lisinopril [Prinivil] 5 mg PO DAILY 09/08/14 11/23/24 Albuterol Inhaler [Ventolin Hfa 2 puff INHALATION RT-Q4H PRN 04/17/20 11/23/24 Inhaler] Tamsulosin [Flomax] 0.4 mg PO DAILY 04/17/20 11/23/24 Famotidine [Pepcid] 40 mg PO DAILY 11/23/24 11/23/24 Montelukast [Singulair] 10 mg PO DAILY 11/23/24 11/23/24 Omeprazole [PriLOSEC] 40 mg PO DAILY 11/23/24 11/23/24 Rosuvastatin Calcium [Crestor] 40 mg PO HS 11/23/24 11/23/24 Previous Rx's Medication Instructions Recorded Linezolid [Zyvox] 600 mg PO Q12HR #21 tab 11/26/24 metroNIDAZOLE [Flagyl] 500 mg PO BID #21 tab 11/26/24 Allergies Allergy/AdvReac Type Severity Reaction Status Date / Time Penicillins Allergy Severe Unknown Verified 11/23/24 08:03 Childhood Beef Containing Products AdvReac Stomach Verified 11/23/24 08:03 Cramps Review of Systems ROS Statement: Those systems with pertinent positive or pertinent negative responses have been documented in the HPI. ROS Other: All systems not noted in ROS Statement are negative. Past Medical History Past Medical History: Asthma, GERD/Reflux, Hyperlipidemia, Hypertension, Osteoarthritis (OA), Skin Disorder, Sleep Apnea/CPAP/BIPAP, Thyroid Disorder Additional Past Medical History / Comment(s): Lumbar herniated disc, heart mumur, hypothyroidism, cpap set at 2, psoriasis, hx polyps. History of Any Multi-Drug Resistant Organisms: None Reported Past Surgical History: Cholecystectomy, Orthopedic Surgery Additional Past Surgical History / Comment(s): Bilateral shoulder rotator cuff repair and L shoulder has retorn and cannot be repaired. Lumbar back epidural steroid injections and L shoulder steroid injections. Past Anesthesia/Blood Transfusion Reactions: No Reported Reaction Additional Past Anesthesia/Blood Transfusion Reaction / Comment(s): Pt has never recieved blood. Past Psychological History: No Psychological Hx Reported Smoking Status: Former smoker Past Alcohol Use History: Occasional Past Drug Use History: None Reported - Past Family History Mother Family Medical History: Coronary Artery Disease (CAD), Dementia Additional Family Medical History / Comment(s): Mother is alive and 83 yrs old. Father Family Medical History: Cancer, CVA/TIA, Osteoarthritis (OA) Additional Family Medical History / Comment(s): Father is alive at age 92 yrs old. Skin melanoma. General Exam Limitations: no limitations General appearance: alert, in no apparent distress Head exam: Present: atraumatic, normocephalic, normal inspection Eye exam: Present: normal appearance, PERRL, EOMI. Absent: scleral icterus, conjunctival injection, periorbital swelling ENT exam: Present: normal exam, mucous membranes moist Neck exam: Present: normal inspection. Absent: tenderness, meningismus, lymphadenopathy Respiratory exam: Present: normal lung sounds bilaterally. Absent: respiratory distress, wheezes, rales, rhonchi, stridor Cardiovascular Exam: Present: regular rate, normal rhythm, normal heart sounds. Absent: systolic murmur, diastolic murmur, rubs, gallop, clicks GI/Abdominal exam: Present: soft, normal bowel sounds. Absent: distended, tenderness, guarding, rebound, rigid Extremities exam: Present: normal inspection, full ROM, normal capillary refill. Absent: tenderness, pedal edema, joint swelling, calf tenderness Back exam: Present: normal inspection Neurological exam: Present: alert, oriented X3, CN II-XII intact Psychiatric exam: Present: normal affect, normal mood Skin exam: Present: warm, dry, intact, normal color. Absent: rash Course Vital Signs 11/22/24 11/22/24 11/22/24 19:25 21:17 23:00 Temperature 98.1 F Pulse Rate 68 70 76 Pulse Rate [ Pulse Oximetery ] Respiratory 18 18 18 Rate Blood Pressure 159/95 157/97 152/102 Blood Pressure [Right Arm] O2 Sat by Pulse 95 97 97 Oximetry 11/23/24 11/23/24 00:48 01:36 Temperature 98.3 F Pulse Rate 80 Pulse Rate [ 66 Pulse Oximetery ] Respiratory 20 17 Rate Blood Pressure 140/98 Blood Pressure 157/88 [Right Arm] O2 Sat by Pulse 97 98 Oximetry - Reevaluation(s) Reevaluation #1: 11/22/24 21:59 Medical records reviewed ER visit from earlier in the week reviewed with lab testing and CT scan Reevaluation #2: 11/22/24 21:59 Patient informed of results and questions answered Reevaluation #3: 11/22/24 21:59 Patient symptoms are improving Reevaluation #4: Was pt. sent in by a medical professional or institution (, PA, [employer], urgent care, hospital, or longterm...) When possible be specific @ -no Did you speak to anyone other than the patient for history (EMS, parent, family, police, friend...)? What history was obtained from this source @ -no Did you review nursing and triage notes (agree or disagree)? Why? @ -agree Are old charts reviewed (outside hosp., previous admission, EMS record, old EKG, old radiological studies, urgent care reports/EKG's, longterm records)? Report findings @ -yes Differential Diagnosis (chest pain, altered mental status, abdominal pain women, abdominal pain men, vaginal bleeding, weakness, fever, dyspnea, syncope, headache, dizziness, GI bleed, back pain, seizure, CVA, palpatations, mental health, musculoskeletal)? @ -prior EKG interpreted by me (3pts min.). @ -no X-rays interpreted by me (1pt min.). @ -no CT interpreted by me (1pt min.). @ -Yes positive peritonsillar abscess U/S interpreted by me (1pt. min.). @ -no What testing was considered but not performed or refused? (CT, X-rays, U/S, labs)? Why? @ -none What meds were considered but not given or refused? Why? @ -none Did you discuss the management of the patient with other professionals (professionals i.e. , PA, [employer], lab, RT, psych nurse, social work administrator, director radio, teacher, radiation officer, pillowcase cutter)? Give summary @ -no Was smoking cessation discussed for >3mins.? @ -no Was critical care preformed (if so, how long)? @ -no Were there social determinants of health that impacted care today? How? (Homelessness, low income, unemployed, alcoholism, drug addiction, hung sportation, low edu. Level, literacy, decrease access to med. care, retirement, rehab)? @ -none Was there de-escalation of care discussed even if they declined (Discuss DNR or withdrawal of care, Hospice)? DNR status @ -no What co-morbidities impacted this encounter? (DM, HTN, Smoking, COPD, CAD, Cancer, CVA, ARF, Chemo, Hep., AIDS, mental health diagnosis, sleep apnea, morbid obesity)? @ -none Was patient admitted / discharged? Hospital course, mention meds given and route, prescriptions, significant lab abnormalities, going to OR and other pertinent info. @ - 64 male will be admitted for peritonsillar abscess need for ENT consultation and evaluation Admitted Undiagnosed new problem with uncertain prognosis? @ -no Drug Therapy requiring intensive monitoring for toxicity (Heparin, Nitro, In sulin, Cardizem)? @ -no Were any procedures done? @ -no Diagnosis/symptom? @ -Peritonsillar abscess Acute, or Chronic, or Acute on Chronic? @ -Acute Uncomplicated (without systemic symptoms) or Complicated (systemic symptoms)? @ -Complicated Side effects of treatment? @ -no Exacerbation, Progression, or Severe Exacerbation? @ -exacerbation Poses a threat to life or bodily function? How? (Chest pain, USA, GA, pneumonia, PE, COPD, DKA, ARF, appy, cholecystitis, CVA, Diverticulitis, Homicidal, Suicidal, threat to staff... and all critical care pts) @ -yes severe infection - Consultations Consultation #1: Spoke with sound who agrees to admit this patient Medical Decision Making - Medical Decision Making 64 male will be admitted for peritonsillar abscess need for ENT consultation and evaluation - Lab Data Result diagrams: 11/26/24 05:42 11/26/24 05:42 Lab Results 11/22/24 11/22/24 11/22/24 Range/Units 21:04 21:04 21:04 WBC 13.30 H (4.50-10.00) 10*3/uL RBC 3.97 L (4.40-5.60) 10*6/uL Hgb 13.0 (13.0-17.0) g/dL Hct 37.5 L (39.6-50.0) % MCV 94.5 (80.0-97.0) fL MCH 32.7 H (27.0-32.0) pg MCHC 34.7 (32.0-37.0) g/dL Plt Count 311 (140-440) 10*3/uL MPV 9.1 L (9.5-12.2) fL Immature Gran % (Auto) 0.7 % Neutrophils % 70.9 % Lymphocytes % 16.4 % Monocytes % 10.9 % Eosinophils % 0.5 % Basophils % 0.6 % Immature Gran # 0.09 H (0.00-0.04) 10*3/uL Neutrophils # 9.43 H (1.80-7.70) 10*3/uL Lymphocytes # 2.18 (0.90-5.00) 10*3/uL Monocytes # 1.45 H (0.20-1.00) 10*3/uL Eosinophils # 0.07 (0.04-0.35) 10*3/uL Basophils # 0.08 (0.00-0.10) 10*3/uL PT 10.1 (10.0-12.5) sec INR 0.9 (<1.2) APTT 22.2 (22.0-30.0) sec Sodium 132 L (137-145) mmol/L Potassium 3.6 (3.5-5.1) mmol/L Chloride 101 (98-107) mmol/L Carbon Dioxide 24 (22-30) mmol/L Anion Gap 7 mmol/L BUN 13 (9-20) mg/dL Creatinine 0.60 L (0.66-1.25) mg/dL Est GFR (CKD-EPI)AfAm >90 (>60 ml/min/1.73 sqM) Est GFR (CKD-EPI)NonAf >90 (>60 ml/min/1.73 sqM) Glucose 104 H (74-99) mg/dL Plasma Lactic Acid Patricio (0.7-2.0) mmol/L Calcium 8.8 (8.4-10.2) mg/dL Phosphorus 4.5 (2.5-4.5) mg/dL Magnesium 1.7 (1.6-2.3) mg/dL Total Bilirubin 0.6 (0.2-1.3) mg/dL AST 38 (17-59) U/L ALT 46 (4-49) U/L Alkaline Phosphatase 50 (38-126) U/L Total Protein 6.1 L (6.3-8.2) g/dL Albumin 3.6 (3.5-5.0) g/dL Group A Strep (PCR) (Not Detectd) 11/22/24 11/22/24 Range/Units 21:04 23:20 WBC (4.50-10.00) 10*3/uL RBC (4.40-5.60) 10*6/uL Hgb (13.0-17.0) g/dL Hct (39.6-50.0) % MCV (80.0-97.0) fL MCH (27.0-32.0) pg MCHC (32.0-37.0) g/dL Plt Count (140-440) 10*3/uL MPV (9.5-12.2) fL Immature Gran % (Auto) % Neutrophils % % Lymphocytes % % Monocytes % % Eosinophils % % Basophils % % Immature Gran # (0.00-0.04) 10*3/uL Neutrophils # (1.80-7.70) 10*3/uL Lymphocytes # (0.90-5.00) 10*3/uL Monocytes # (0.20-1.00) 10*3/uL Eosinophils # (0.04-0.35) 10*3/uL Basophils # (0.00-0.10) 10*3/uL PT (10.0-12.5) sec INR (<1.2) APTT (22.0-30.0) sec Sodium (137-145) mmol/L Potassium (3.5-5.1) mmol/L Chloride (98-107) mmol/L Carbon Dioxide (22-30) mmol/L Anion Gap mmol/L BUN (9-20) mg/dL Creatinine (0.66-1.25) mg/dL Est GFR (CKD-EPI)AfAm (>60 ml/min/1.73 sqM) Est GFR (CKD-EPI)NonAf (>60 ml/min/1.73 sqM) Glucose (74-99) mg/dL Plasma Lactic Acid Patricio 0.7 (0.7-2.0) mmol/L Calcium (8.4-10.2) mg/dL Phosphorus (2.5-4.5) mg/dL Magnesium (1.6-2.3) mg/dL Total Bilirubin (0.2-1.3) mg/dL AST (17-59) U/L ALT (4-49) U/L Alkaline Phosphatase (38-126) U/L Total Protein (6.3-8.2) g/dL Albumin (3.5-5.0) g/dL Group A Strep (PCR) NOT DETECTED (Not Detectd) - Radiology Data Radiology results: report reviewed (CT soft tissue neck positive peritonsillar abscess), image reviewed Disposition Clinical Impression: Sore throat, Pain, dental, Tonsillar abscess, Peritonsillar abscess Disposition: ADMITTED IP TO THIS HOSP Condition: Fair Is patient prescribed a controlled substance at d/c from ED?: No Time of Disposition: 22:00
[2024-11-22] MEDS: CLINDAMYCIN 600 MG in DEXTROSE 5% IN WATER 50 ML IVPB STA (21:09)
[2024-11-22] MEDS: DEXAMETHASONE SOD PHOSPHATE 10 MG/ML 1 ML VIAL IVP STA (21:12)
[2024-11-22] MEDS: ONDANSETRON 4 MG/2 ML VIAL IVP STA (21:13)
[2024-11-22 21:14] LABS: Basophils # (A) 0.08 10*3/uL (0.00-0.10); Basophils % (A) 0.6 %; Eosinophils # (A) 0.07 10*3/uL (0.04-0.35); Eosinophils % (A) 0.5 %; HCT 37.5 % (39.6-50.0); Lymphocytes # (A) 2.18 10*3/uL (0.90-5.00); Lymphocytes % (A) 16.4 %; MCH 32.7 pg (27.0-32.0); MCHC 34.7 g/dL (32.0-37.0); MCV 94.5 fL (80.0-97.0); Mean Platelet Volume 9.1 fL (9.5-12.2); Monocytes # (A) 1.45 10*3/uL (0.20-1.00); Monocytes % (A) 10.9 %; Neutrophils # (A) 9.43 10*3/uL (1.80-7.70); Neutrophils % (A) 70.9 %; Platelet Count 311 10*3/uL (140-440); RBC 3.97 10*6/uL (4.40-5.60); RDW 12.6 % (11.5-14.5)
[2024-11-22] MEDS: MORPHINE SULFATE 4 MG/ML SYRINGE IV STA (21:14)
[2024-11-22] MEDS: SODIUM CHLORIDE 0.9% 1,000 ML IV ONE (21:15)
[2024-11-22] MEDS: SODIUM CHLORIDE 0.9% 1,000 ML IV SCH (21:15)
[2024-11-22 21:27] LABS: ALT 46 U/L (4-49); AST 38 U/L (17-59); African American GFR (CKD) >90 (>60 ml/min/1.73 sqM); Albumin 3.6 g/dL (3.5-5.0); Alkaline Phosphatase 50 U/L (38-126); Anion Gap 7 mmol/L; Blood Urea Nitrogen 13 mg/dL (9-20); Calcium 8.8 mg/dL (8.4-10.2); Carbon Dioxide 24 mmol/L (22-30); Chloride 101 mmol/L (98-107); Glucose 104 mg/dL (74-99); Magnesium 1.7 mg/dL (1.6-2.3); Non-African American GFR(CKD) >90 (>60 ml/min/1.73 sqM); Phosphorus 4.5 mg/dL (2.5-4.5); Potassium 3.6 mmol/L (3.5-5.1); Sodium 132 mmol/L (137-145); Total Bilirubin 0.6 mg/dL (0.2-1.3); Total Protein 6.1 g/dL (6.3-8.2)
[2024-11-22 21:31] LABS: INR 0.9 (<1.2); Partial Thromboplastin Time 22.2 sec (22.0-30.0); Prothrombin Time 10.1 sec (10.0-12.5)
--- NOTE | 2024-11-22 22:34 | CT ---
EXAMINATION TYPE: CT soft tissue neck w con DATE OF EXAM: 11/22/2024 10:15 PM COMPARISON: 11/17/2024. CLINICAL INDICATION: Male, 64 years old with history of abscess; PHH, Patient reports throat swelling related to dental swelling. Patient reports difficulty swallowing as well. Prior in PACS. Scanned by MP iso 300 100mL TECHNIQUE: Standard enhanced CT of the neck. Axial sections with coronal and sagittal reformats were obtained. Contrast used:100 mL of Isovue 300 with IV Contrast, (None if empty) Oral contrast used: (None if empty) CT DLP: 327 mGycm, Automated exposure control for dose reduction was used. FINDINGS: Brain: Visualized portions are grossly unremarkable. Orbits: Unremarkable Sinuses: Grossly unremarkable. Spaces of the neck: Clear and symmetric. The left palatine tonsil region is now asymmetrically increa se in size with lower density region possibly representing early abscess formation/phlegmonous change measuring set 18 x 14 mm on series 201 image 64 There is mild narrowing of the oropharynx because of the abdomen was changed. Musculoskeletal: No acute osseous pathology. Lymph nodes: Multiple nonenlarged lymph nodes are seen along both anterior chains of the neck. Vascular structures: Visualized major arteries are patent without evidence of aneurysm. Thoracic Inlet/airway: Airway is patent. The lung apices are clear. Soft tissues/Thyroid: Thyroid and remainder of the soft tissues are unremarkable. Other: none. IMPRESSION: Interval increase in edematous change to the left peritonsillar abscess is thought to be present whic h is new from prior. Findings communicated to Shon Headley DO on 11/22/2024 10:[address] Chris Li. [facility], , 11/22/2024 10:31 PM
[2024-11-22] MEDS: KETOROLAC 15 MG/ML 1 ML VIAL IVP STA (22:54)
[2024-11-23] MEDS: AZITHROMYCIN 500 MG in SODIUM CHLORIDE 0.9% 250 ML IVPB STA
[2024-11-23] MEDS ORDERED: NALOXONE 0.4 MG/ML 1 ML VIAL IV PRN (00:22)
[2024-11-23] MEDS: MORPHINE SULFATE 4 MG/ML SYRINGE IV PRN (00:41)
--- NOTE | 2024-11-23 01:21 | P.HPIM ---
History of Present Illness H&P Date: 11/22/24 Chief Complaint: Throat pain Patient is a 64 year old male with past medical history of Asthma, GERD, hyperlipidemia, hypertension, hypothyroidism, VARGHESE on CPAP, cholecystectomy presented to the ED with throat pain. Patient reports throat pain that started a week ago. He initially presented to the ED a week ago with throat pain and difficulty swallowing. At the time a soft tissue neck CT was obtained that showed no well formed thick walled fluid collection or abscess seen and Patent airway noted. He was discharged home with Clindamycin 300 mg PO QID for 10 days. Five days later, today patient presented with worsening pain. He mentions the antibiotic didn't help with his symptoms. He also had a subjective low grade fever. Associated with that he reports difficulty swallowing. He denies shortness of breath, cough, discharge. He lives with his fiance and denies any sick contacts. He mentions of having penicillin allergy, he reports "being a baby when he was found to have penicillin allergy and was told that he almost " but patient has had Keflex in the past that he has tolerated. Additionally thomas reports having dental infection and is scheduled to have multiple teeth extraction in the upcoming weeks. Denies chills, shortness of breath, cough, chest pain, palpitations, abdominal pain, nausea, vomiting, hematuria, dysuria, hematochezia, melena, headache, slurred speech, numbness, tingling, dizziness, lightheadedness, blurred vision, double vision. ED documentation reviewed. In the ED patient was treated with Clindamycin, Decadron, Toradol,Morphine, Ondansetron, Azithromycin and 0.9 normal saline. Vitals on admission T 98.1F, P 68 bpm, RR 18, BP 159/95, O2 sat 95% on RA Soft tissue neck CT shows left palatine tonsil is assymetrically increased in size possible representing early abscess formation/phlegmonous change. Interval increase in edematus change to the left peritonsillar abscess Labs on admission show WBC 13.3, Hb 13, INR 0.9, Na 132, K 3.6, creatinine 0.6, lactic acid 0.7, Ph 4.5, Mg 1.7, total bilirubin 0.6 Review of systems: Pertinent positives and negatives as discussed in HPI, a complete review of systems was performed and all other systems are negative. Social history: Tobacco: Former smoker Alcohol: Occasional Recreational drugs: Denies use Travel: No recent travel history Sick contacts: None Physical examination: Vital signs reviewed General: nontoxic, no distress, appears at stated age Derm: warm, dry, intact Head: atraumatic, normocephalic, symmetric Eyes: EOMI, anicteric sclera ENT: Dental caries, left peritonsillar swelling, no drainage, left cheek pain Mouth: no lip lesion, mucus membranes moist Cardiovascular: S1 S2 reg, no murmur Lungs: CTA bilateral, no rhonchi, no rales, no accessory muscle use Abdominal: soft, non-tender to palpation Extremities: No cyanosis, clubbing, or pedal edema. Neuro: Alert, Oriented, Gross neurological examination did not reveal any focal deficits. Psych: well appearing, appropriate affect Assessment/Plan: Patient is a 64 year old male with past medical history of Asthma, GERD, hyperlipidemia, hypertension, hypothyroidism, VARGHESE on CPAP, cholecystectomy prese nted to the ED with throat pain and odynophagia and has been admitted for suspected left peritonsillar abscess. Active: #. Left peritonsillar abscess, likley secondary to poor dental hygiene and dental caries WBC 13.[address] on 11/17/24 showed no well formed thick walled fluid collection or abscess seen and patent airway noted Soft tissue neck CT on 11/22/24 shows left palatine tonsil is assymetrically increased in size 18 mm x 11 mm possibly representing early abscess formation/phlegmonous change. Interval increase in edematus change to the left peritonsillar abscess Received Clindamycin 300 mg PO QID a week ago for 10 days, failed therapy likely due to clindamycin not being active against MRSA or GAS Received Azithromycine 500 mg IVPB once and Clindamycin 600 mg IVPB once and Decadron 10 mg IVP once in the ED Received Morphine 4 mg IV once and Ketorolac 15 mg IVP once in the ED for pain management Started on Linezolid 600 mg IV Q12HR and Metronidazole 500 mg IV Q8HR as empiric therapy to include coverage for GAS, Staphylococcus, and respiratory anaerobes Continue Acetaminophen 650 mg PO Q6HR PRN, Acetaminophen 1000 mg IVPB once PRN, Morphine 4mg IV Q4HR PRN, throat lozenges for pain management Obtain blood culture and Strep group A PCR Maintain NPO Appreciate ENT expertise for abscess Incision and Drainage #. Hyponatremia Na 132 Received 1L bolus of 0.9 NS in the ED Continue 0.9 normal saline at 130 ml/hr Monitor BMP #. Nausea and vomiting Continue Ondansetron 4mg IVP Q8HR PRN Chronic: #. Asthma #. GERD #. Hypothyroidism #. Hypertension #. BPH #. Poor dental hygiene and dental caries Continue Albuetrol inhaler, Levothyroxine 88 mcg PO QAM Lisinopril 5 mg QAM, Pantoprazole 40 mg PO daily, Tamsulosin 0.4 mg PO daily Patient advised to set up outpatient dental appointment, print room worker consulted to help with the same F: 0.9 Normal saline at 130 ml/hr E: Replete Na N: NPO A: Ambulatory DVT prophylaxis: Lovenox 40 mg SQ daily GI prophylaxis: Pantoprazole 40 mg PO daily The patient is admitted with an anticipated more than 2 midnight stay for evaluation of throat pain CODE STATUS: Full Code Discussed with: Patient Anticipated discharge place: Home Past Medical History Past Medical History: Asthma, GERD/Reflux, Hyperlipidemia, Hypertension, Osteoarthritis (OA), Skin Disorder, Sleep Apnea/CPAP/BIPAP, Thyroid Disorder Additional Past Medical History / Comment(s): Lumbar herniated disc, heart mumur, hypothyroidism, cpap set at 2, psoriasis, hx polyps. History of Any Multi-Drug Resistant Organisms: None Reported Past Surgical History: Cholecystectomy, Orthopedic Surgery Additional Past Surgical History / Comment(s): Bilateral shoulder rotator cuff repair and L shoulder has retorn and cannot be repaired. Lumbar back epidural steroid injections and L shoulder steroid injections. Past Anesthesia/Blood Transfusion Reactions: No Reported Reaction Additional Past Anesthesia/Blood Transfusion Reaction / Comment(s): Pt has never recieved blood. Past Psychological History: No Psychological Hx Reported Smoking Status: Former smoker Past Alcohol Use History: Occasional Past Drug Use History: None Reported - Past Family History Mother Family Medical History: Coronary Artery Disease (CAD), Dementia Additional Family Medical History / Comment(s): Mother is alive and 83 yrs old. Father Family Medical History: Cancer, CVA/TIA, Osteoarthritis (OA) Additional Family Medical History / Comment(s): Father is alive at age 92 yrs old. Skin melanoma. Medications and Allergies Home Medications Medication Instructions Recorded Confirmed Type Clobetasol Propionate [Temovate 1 applic TOPICAL BID 09/08/14 05/17/20 History 0.05% Cream] Dovonex 0.005% Cream 1 applic TOPICAL BID 09/08/14 05/17/20 History Levothyroxine Sodium [Levoxyl] 88 mcg PO QAM 09/08/14 05/17/20 History Lisinopril [Prinivil] 5 mg PO QAM 09/08/14 05/17/20 History Loratadine [Claritin] 10 mg PO DAILY 09/08/14 05/17/20 History Metoclopramide [Reglan] 10 mg PO TID PRN 09/08/14 05/17/20 History Omeprazole [PriLOSEC] 20 mg PO AC-BRKFST 09/08/14 05/17/20 History mg Trisilicate/Alh/Nahco3/Aa 1 each PO HS PRN 09/08/14 05/17/20 History [Gaviscon 80-14.2 mg Tab Chew] Albuterol Inhaler [Ventolin Hfa 1 puff INHALATION DAILY 04/17/20 05/17/20 History Inhaler] Tamsulosin [Flomax] 0.4 mg PO DAILY 04/17/20 05/17/20 History Acetaminophen Tab [Tylenol Tab] 500 mg PO Q6H PRN #30 tablet 05/18/20 Rx Ibuprofen [Motrin] 600 mg PO Q8HR PRN #30 tab 05/18/20 Rx clindamycin HCL 300 mg PO QID #40 cap 11/17/24 Rx Allergies Allergy/AdvReac Type Severity Reaction Status Date / Time Penicillins Allergy Severe Unknown Verified 11/22/24 19:29 Childhood Beef Containing Products AdvReac Stomach Verified 11/22/24 19:29 Cramps Physical Exam Vitals: Vital Signs Temp Pulse Resp BP Pulse Ox 11/22/24 21:17 70 18 157/97 97 11/22/24 19:25 98.1 F 68 18 159/95 95 Intake and Output 11/22/24 11/22/24 11/23/24 14:59 22:59 06:59 Other: Weight 77.111 kg Results CBC & Chem 7: 11/22/24 21:04 11/22/24 21:04 Labs: Abnormal Lab Results - Last 24 Hours (Table) 04/07/25 04/07/25 Range/Units 21:04 21:04 WBC 13.30 H (4.50-10.00) 10*3/uL RBC 3.97 L (4.40-5.60) 10*6/uL Hct 37.5 L (39.6-50.0) % MCH 32.7 H (27.0-32.0) pg MPV 9.1 L (9.5-12.2) fL Immature Gran # 0.09 H (0.00-0.04) 10*3/uL Neutrophils # 9.43 H (1.80-7.70) 10*3/uL Monocytes # 1.45 H (0.20-1.00) 10*3/uL Sodium 132 L (137-145) mmol/L Creatinine 0.60 L (0.66-1.25) mg/dL Glucose 104 H (74-99) mg/dL Total Protein 6.1 L (6.3-8.2) g/dL
[2024-11-23] MEDS ORDERED: ALBUTEROL NEBULIZED 2.5 MG/3 ML INHALATION PRN ×2 (01:22→08:50)
[2024-11-23] MEDS ORDERED: ACETAMINOPHEN IV (For NPO) 1,000 MG in EMPTY BAG 1 BAG IVPB PRN (01:35)
[2024-11-23] MEDS: BENZOCAINE/MENTHOL LOZENG 1 EACH LOZENGE MUCOUS MEM PRN (02:26)
[2024-11-23] MEDS ORDERED: CLINDAMYCIN 600 MG in DEXTROSE 5% IN WATER 50 ML IVPB SCH (05:00)
[2024-11-23] MEDS: LEVOTHYROXINE 88 MCG TAB PO SCH (06:59)
[2024-11-23] MEDS ORDERED: metroNIDAZOLE-NS PMX 500 MG in SALINE 1 100ML.BAG IVPB SCH (08:00)
[2024-11-23 08:01] LABS: Basophils # (A) 0.01 10*3/uL (0.00-0.10); Basophils % (A) 0.1 %; HCT 37.8 % (39.6-50.0); HGB 12.9 g/dL (13.0-17.0); Lymphocytes % (A) 8.5 %; MCH 32.7 pg (27.0-32.0); MCHC 34.1 g/dL (32.0-37.0); MCV 95.9 fL (80.0-97.0); Mean Platelet Volume 9.3 fL (9.5-12.2); Monocytes # (A) 0.81 10*3/uL (0.20-1.00); Monocytes % (A) 8.6 %; Neutrophils # (A) 7.71 10*3/uL (1.80-7.70); Neutrophils % (A) 82.2 %; Platelet Count 343 10*3/uL (140-440); RBC 3.94 10*6/uL (4.40-5.60); RDW 12.7 % (11.5-14.5); WBC 9.39 10*3/uL (4.50-10.00)
[2024-11-23 08:33] LABS: African American GFR (CKD) >90 (>60 ml/min/1.73 sqM); Anion Gap 6 mmol/L; Blood Urea Nitrogen 10 mg/dL (9-20); Calcium 8.9 mg/dL (8.4-10.2); Carbon Dioxide 27 mmol/L (22-30); Chloride 101 mmol/L (98-107); Glucose 121 mg/dL (74-99); Magnesium 1.8 mg/dL (1.6-2.3); Non-African American GFR(CKD) >90 (>60 ml/min/1.73 sqM); Potassium 4.4 mmol/L (3.5-5.1); Sodium 134 mmol/L (137-145)
[2024-11-23] MEDS ORDERED: NON FORMULARY DRUG (Famotidine [Pepcid] 40 MG Tablet) PO SCH (09:00)
[2024-11-23] MEDS: MONTELUKAST 10 MG TAB PO SCH (10:03)
[2024-11-23] MEDS: LINEZOLID 600 MG in DEXTROSE/WATER 1 300ML.BAG IVPB SCH (10:04)
[2024-11-23] MEDS: lisinopriL 5 MG TAB PO SCH (10:04)
[2024-11-23] MEDS: TAMSULOSIN 0.4 MG CAP.ER.24H PO SCH (10:04)
[2024-11-23] MEDS: ENOXAPARIN 40 MG/0.4 ML SYRINGE SQ SCH (10:05)
[2024-11-23] MEDS: PANTOPRAZOLE 40 MG/10 ML VIAL IVP SCH (10:05)
[2024-11-23] MEDS: metroNIDAZOLE-NS PMX 500 MG in SALINE 1 100ML.BAG IVPB SCH (10:07)
--- NOTE | 2024-11-23 10:29 | P.PN ---
Subjective Progress Note Date: 11/23/24 Hospital course: Patient is a pleasant 64-year-old male with a past medical history of hypertension, hyperlipidemia, hypothyroidism, mild persistent asthma, GERD, and obstructive sleep apnea CPAP dependent nightly. He presented to our facility on 11/22/24 secondary to throat pain and dysphagia. He was being treated outpatient with clindamycin for dental symptoms. Patient reports symptoms persistently worsened and he is now having swelling and pain in the back of his throat but he subjective low-grade fever, dysphagia and chills. Upon arrival to our facility, patient underwent evaluation in the emergency department. Vital signs upon arrival show blood pressure 159/95, heart rate 68, respiratory rate 18, temp 98.1 F, and SpO2 of 95% on room air. Labs completed and reviewed. CBC showing leukocytosis with WBC count of 13.30. Coagulation profile normal findings. BMP showing mild hyponatremia with sodium of 132 otherwise normal findings. Blood glucose 104. Lactic acid was 0.7. Magnesium slightly low at 1.7. Liver profile unremarkable. Group A strep PCR was negative. CT soft tissues now showing left palatine tonsil with increase in size and edematous changes concerning for early abscess/phlegmonous changes measuring up to 18 x 14 mm with mild narrowing of the oropharynx. Physical exam: Vital signs reviewed and stable. General: Nontoxic, no distress and appears stated age. Derm: Skin warm and dry, normal coloration for ethnicity. Head: Atraumatic, normocephalic and symmetric. Eyes: EOM's intact, no lid lag, and anicteric sclera Mouth: Poor dentition, multiple caries and missing teeth. Erythema and swelling of left tonsil. Cardiovascular: regular rate and rhythm with normal S1S2, no murmur, positive posterior tibial pulses bilaterally, and cap refill < 2 seconds. Lungs: Respirations even, regular, and unlabored on room air. Lungs CTA kyrie aterally, no rhonchi, no rales, no wheezing, and no accessory muscle usage. Abdominal: soft, nontender to palpation, no guarding, no appreciable organomegaly Ext: ROM intact. No gross muscle atrophy, no edema, no contractures Neuro: Speech clear, face symmetrical and CN II-XII grossly intact with no noted focal neuro deficits Psych: Alert and oriented to person, place, time, and situation. Appropriate and pleasant affect. Assessment and Plan of Care: Left peritonsillar abscess, failed outpatient treatment with clindamycin Dysphagia, secondary oropharynx narrowing resulting from to above Multiple dental caries -Patient reports dysphagia but states he is clearing secretions independently a nd is maintaining airway. Aspiration precautions in place. -CT soft tissues now showing left palatine tonsil with increase in size and edematous changes concerning for early abscess/phlegmonous changes measuring up to 18 x 14 mm with mild narrowing of the oropharynx. -Continue IV antibiotics with linezolid 600 mg every 12 hours and Flagyl 500 mg every 12 hours. -ENT consulted for possible I&D. -N.p.o. pending evaluation by ENT -Follow-up cultures -Phenol Chloraseptic [place] every 2 hours as needed for sore throat -Ofirmev 1006 hours as needed for mild pain/fever, Toradol 15 mg IVP every 6 hours as needed for moderate pain, and morphine 4 mg IVP as needed for severe pain. -Continue IV fluid hydration with 0.9% normal saline at 130 cc/h, may discontinue once diet is advanced patient is tolerating oral intake -Recommend outpatient follow-up with [facility] for dental care. Hyponatremia -Improving. Sodium 134 this morning. Likely secondary to poor oral intake. Continue IV fluid hydration with 0.9% normal saline at 130 cc/h. -Follow-up with repeat morning BMP to monitor for improvement/resolution of hyponatremia. Hypertension -Monitor vital signs and continue daily medication regimen with lisinopril 5 mg daily. Hypothyroidism -Continue daily medication regimen with levothyroxine 88 mcg daily. Mild persistent asthma -Albuterol nebulizers every 4 hours as needed for wheezing/shortness of breath and continue Singulair 10 mg daily. BPH -Continue Flomax 0.4 mg daily. Data and imaging reviewed: -CT soft tissues now showing left palatine tonsil with increase in size and edematous changes concerning for early abscess/phlegmonous changes measuring up to 18 x 14 mm with mild narrowing of the oropharynx. -Reviewed. CBC showing resolution of leukocytosis with WBC count of 9.39 and mild normocytic anemia with hemoglobin of 12.9. BMP showing improvement of hyponatremia from 1 32-1 34 this morning. Blood glucose 121. Magnesium 1.8. Group A strep PCR was negative. CODE STATUS: Full code DVT prophylaxis: Lovenox Discussed with: Patient, case loader operator, and RN Anticipated discharge date: Pending clinical course Anticipated discharge place: Home Patient was seen independently by Nurse Pracitioner. This document was prepared using [employer] dictation software. Please allow for errors in clinical research tech, while rare they do occur. Berhane Villanueva SAFETY LAMP KEEPER rendered care for this patient independently, reviewed the findings and plan as documented in the note above and agree with plan. I did not physically speak with or examine the patient on this date. Objective - Vital Signs Vital signs: Vital Signs Temp 97.6 F 11/23/24 06:48 Pulse 66 11/23/24 06:48 Resp 18 11/23/24 06:48 BP 146/78 11/23/24 06:48 Pulse Ox 96 11/23/24 06:48 FiO2 Intake & Output 11/22/24 11/23/24 11/23/24 18:59 06:59 18:59 Weight 77.111 kg Other: Voiding Method Toilet # Voids 2 - Labs CBC & Chem 7: 11/23/24 07:42 11/23/24 07:42 Labs: Abnormal Lab Results - Last 24 Hours (Table) 11/22/24 11/22/24 11/23/24 Range/Units 21:04 21:04 07:42 WBC 13.30 H (4.50-10.00) 10*3/uL RBC 3.97 L 3.94 L (4.40-5.60) 10*6/uL Hgb 12.9 L (13.0-17.0) g/dL Hct 37.5 L 37.8 L (39.6-50.0) % MCH 32.7 H 32.7 H (27.0-32.0) pg MPV 9.1 L 9.3 L (9.5-12.2) fL Immature Gran # 0.09 H 0.06 H (0.00-0.04) 10*3/uL Neutrophils # 9.43 H 7.71 H (1.80-7.70) 10*3/uL Lymphocytes # 0.80 L (0.90-5.00) 10*3/uL Monocytes # 1.45 H (0.20-1.00) 10*3/uL Eosinophils # 0.00 L (0.04-0.35) 10*3/uL Sodium 132 L (137-145) mmol/L Creatinine 0.60 L (0.66-1.25) mg/dL Glucose 104 H (74-99) mg/dL Total Protein 6.1 L (6.3-8.2) g/dL 11/23/24 Range/Units 07:42 WBC (4.50-10.00) 10*3/uL RBC (4.40-5.60) 10*6/uL Hgb (13.0-17.0) g/dL Hct (39.6-50.0) % MCH (27.0-32.0) pg MPV (9.5-12.2) fL Immature Gran # (0.00-0.04) 10*3/uL Neutrophils # (1.80-7.70) 10*3/uL Lymphocytes # (0.90-5.00) 10*3/uL Monocytes # (0.20-1.00) 10*3/uL Eosinophils # (0.04-0.35) 10*3/uL Sodium 134 L (137-145) mmol/L Creatinine 0.58 L (0.66-1.25) mg/dL Glucose 121 H (74-99) mg/dL Total Protein (6.3-8.2) g/dL
[2024-11-23] MEDS ORDERED: Phenol 1.4% Sore Throat Spray Bottle MUCOUS MEM PRN (11:55)
[2024-11-23] MEDS: ONDANSETRON 4 MG/2 ML VIAL IVP PRN (14:08)
[2024-11-23] MEDS: KETOROLAC 15 MG/ML 1 ML VIAL IVP PRN (15:51)
[2024-11-23] MEDS ORDERED: AZITHROMYCIN 500 MG in SODIUM CHLORIDE 0.9% 250 ML IVPB SCH (21:00)
--- NOTE | 2024-11-24 02:47 | CONS ---
CONSULTATION REASON FOR CONSULTATION: Left peritonsillar abscess. HISTORY: This is a 64-year-old white male, who has had progressively worsening sore throat, especially on the left over the last week or two. He actually was in the ER a week ago and had a CT, which was negative for abscess. He was treated with oral clindamycin, but returned due to worsening sore throat on the left. He had a CT, which showed evidence of a phlegmon and possible peritonsillar abscess. He had a negative strep culture. He has had a history of dental caries. He has not had difficulties with tonsillitis per se otherwise. Antibiotics as an outpatient was not helping him. PAST MEDICAL HISTORY: Positive for asthma, GERD, hyperlipidemia, hypertension, hypothyroidism, obstructive sleep apnea. PAST SURGICAL HISTORY: Cholecystectomy. ALLERGIES: To penicillin. MEDICATIONS: At home, he denies. REVIEW OF SYSTEMS: Pertinent positives and negatives as discussed in HPI and otherwise review of systems was negative in all other systems. PHYSICAL EXAMINATION: VITAL SIGNS: The patient has been afebrile with stable vital signs otherwise. GENERAL: This is a well-developed white male in no acute distress, although he does have fullness to his voice. HEENT: Head is normocephalic and atraumatic. Ears, bilateral canals clear. Tympanic membranes unremarkable and mobile. Nose shows no drainage or obstruction. Mouth and throat shows slight trismus. There is diffuse erythema and swelling of the left peritonsillar, especially superior tonsillar space with tonsils of +2 otherwise bilaterally. His oropharynx is patent. Teeth show dental caries, but not particularly apparent in the mandibular teeth on the left. No stridor. Hypopharynx and larynx unremarkable. NECK: Supple without adenopathy or tenderness. ASSESSMENT: Left peritonsillar abscess. PLAN: Recommended needle aspiration initially and possible incision and drainage of left peritonsillar abscess. I reviewed the indications, alternatives, and potential benefits and risks of the procedure reviewed with the patient today with risks including but not inclusive of the risk of local anesthesia, bleeding, infection, scarring, recurrence, need for further procedures in the future depending on final healing and possibility of recurrent abscess, need for aspiration. The patient is agreeable to this plan. This was performed today including incision and drainage of left peritonsillar abscess with immediate relief of symptoms including trismus and voicing became normal. Culture was sent with orders performed by his nurse Marco A and would recommend continuing IV antibiotics as well as a course of steroids. If he is doing well tomorrow with disposition, he could be discharged to home on oral antibiotics for a complete 10-day course of antibiotics. Follow up as needed for any recurrent or persistent issues as an outpatient. MMZHENL / LULN: [id number] /
--- NOTE | 2024-11-24 02:59 | OP ---
OPERATIVE REPORT DATE OF SERVICE : PREOPERATIVE DIAGNOSIS: Left peritonsillar abscess. POSTOPERATIVE DIAGNOSIS: Left peritonsillar abscess. PROCEDURE PERFORMED: Incision and drainage of left peritonsillar abscess. ANESTHESIA: Local. ESTIMATED BLOOD LOSS: Less than 5 mL. COMPLICATIONS: None. INDICATIONS: See the full consult note. OPERATIVE FINDINGS: A large left peritonsillar abscess. Approximately, 7 to 8 mL of purulence aspirated and drained through incision. Culture was performed. PROCEDURE IN DETAIL: The patient was in this hospital bed and informed consent was obtained with risks, benefits, and alternatives reviewed. Topical Cetacaine spray was first utilized on the mucosa in the left peritonsillar space. 1% lidocaine with 1:100,000 epinephrine was infused submucosally with a total of 2 mL used. This was left for 7 minutes with vasoconstrictive effect. Initially, a 20-gauge needle was utilized to aspirate into the left superior tonsillar space with immediate aspiration of purulence of 3 to 4 mL, which was cultured. At this site, a 1 cm incision was made then with a 15 blade and copious amounts of purulence was recovered and he spit until this was clear. He did not swallow any of this. Recheck showed no further appearance and hemostasis was noted to be good spontaneously. The patient's voice improved and returned to normal and he felt that his symptoms including swallowing were greatly improved. The patient tolerated the procedure well with no complications. MMODL / IJN: [id number] /
[2024-11-24 04:50] LABS: ALT 77 U/L (4-49); AST 27 U/L (17-59); African American GFR (CKD) >90 (>60 ml/min/1.73 sqM); Albumin 2.8 g/dL (3.5-5.0); Albumin/Globulin Ratio 1.3; Alkaline Phosphatase 78 U/L (38-126); Anion Gap 3 mmol/L; Blood Urea Nitrogen 10 mg/dL (9-20); Calcium 8.3 mg/dL (8.4-10.2); Carbon Dioxide 28 mmol/L (22-30); Chloride 102 mmol/L (98-107); Globulin 2.1 g/dL; Glucose 88 mg/dL (74-99); Magnesium 1.9 mg/dL (1.6-2.3); Non-African American GFR(CKD) >90 (>60 ml/min/1.73 sqM); Phosphorus 4.4 mg/dL (2.5-4.5); Potassium 3.7 mmol/L (3.5-5.1); Sodium 133 mmol/L (137-145); Total Bilirubin 0.5 mg/dL (0.2-1.3); Total Protein 4.9 g/dL (6.3-8.2)
[2024-11-24 08:23] LABS: Basophils # (A) 0.04 X 10*3/uL (0.00-0.10); Basophils % (A) 0.5 %; Eosinophils # (A) 0.06 X 10*3/uL (0.04-0.35); Eosinophils % (A) 0.7 %; HCT 34.6 % (39.6-50.0); HGB 11.5 g/dL (13.0-17.0); Lymphocytes % (A) 27.4 %; MCH 32.5 pg (27.0-32.0); MCHC 33.2 g/dL (32.0-37.0); MCV 97.7 FL (80.0-97.0); Mean Platelet Volume 9.8 FL (9.5-12.2); Monocytes # (A) 1.16 X 10*3/uL (0.20-1.00); Monocytes % (A) 14.5 %; NRBC Per 100 WBC 0 X 10*3/uL (0.00-0.01); Neutrophils # (A) 4.48 X 10*3/uL (1.80-7.70); Neutrophils % (A) 55.9 %; Platelet Count 305 X 10*3/uL (140-440); RBC 3.54 X 10*6/uL (4.40-5.60); RDW 12.9 % (11.5-14.5); WBC 8.02 X 10*3/uL (4.50-10.00)
--- NOTE | 2024-11-24 11:40 | P.PN ---
Subjective Progress Note Date: 11/24/24 Hospital course: Patient is a pleasant 64-year-old male with a past medical history of hypertension, hyperlipidemia, hypothyroidism, mild persistent asthma, GERD, and obstructive sleep apnea CPAP dependent nightly. He presented to our facility on 11/22/24 secondary to throat pain and dysphagia. He was being treated outpatient with clindamycin for dental symptoms. Patient reports symptoms persistently worsened and he is now having swelling and pain in the back of his throat but he subjective low-grade fever, dysphagia and chills. Upon arrival to our facility, patient underwent evaluation in the emergency department. Vital signs upon arrival show blood pressure 159/95, heart rate 68, respiratory rate 18, temp 98.1 F, and SpO2 of 95% on room air. Labs completed and reviewed. CBC showing leukocytosis with WBC count of 13.30. Coagulation profile normal findings. BMP showing mild hyponatremia with sodium of 132 otherwise normal findings. Blood g lucose 104. Lactic acid was 0.7. Magnesium slightly low at 1.7. Liver profile unremarkable. Group A strep PCR was negative. CT soft tissues now showing left palatine tonsil with increase in size and edematous changes concerning for early abscess/phlegmonous changes measuring up to 18 x 14 mm with mild narrowing of the oropharynx. Physical exam: Vital signs reviewed and stable. General: Nontoxic, no distress and appears stated age. Derm: Skin warm and dry, normal coloration for ethnicity. Head: Atraumatic, normocephalic and symmetric. Eyes: EOM's intact, no lid lag, and anicteric sclera Mouth: Poor dentition, multiple caries and missing teeth. Erythema and swelling of left tonsil. Cardiovascular: regular rate and rhythm with normal S1S2, no murmur, positive posterior tibial pulses bilaterally, and cap refill < 2 seconds. Lungs: Respirations even, regular, and unlabored on room air. Lungs CTA bilaterally, no rhonchi, no rales, no wheezing, and no accessory muscle usage. Abdominal: soft, nontender to palpation, no guarding, no appreciable organomegaly Ext: ROM intact. No gross muscle atrophy, no edema, no contractures Neuro: Speech clear, face symmetrical and CN II-XII grossly intact with no noted focal neuro deficits Psych: Alert and oriented to person, place, time, and situation. Appropriate and pleasant affect. Assessment and Plan of Care: Large Left peritonsillar abscess, failed outpatient treatment with clindamycin Dysphagia, secondary oropharynx narrowing resulting from to above Multiple dental caries -CT soft tissues now showing left palatine tonsil with increase in size and edematous changes concerning for early abscess/phlegmonous changes measuring up to 18 x 14 mm with narrowing of the oropharynx. -Continue IV antibiotics with linezolid 600 mg every 12 hours and Flagyl 500 mg every 12 hours. -ENT evaluated and performed I&D of left peritonsillar abscess on 11/23/24 with a documented removal of 7 to 8 mL of purulent aspirated drainage. Culture was obtained at this time and sent to lab for analysis. -Patient tolerated clear liquid diet, will advance to regular diet. -Follow-up wound and blood culture results -Phenol Chloraseptic [place] every 2 hours as needed for sore throat -Ofirmev 1006 hours as needed for mild pain/fever, Toradol 15 mg IVP every 6 shoaib rs as needed for moderate pain, and morphine 4 mg IVP as needed for severe pain. -Patient tolerated clear liquid diet being advanced to regular diet, IV fluids discontinued at this time. -Recommend outpatient follow-up with [facility] for dental care. Hyponatremia -Stable with sodium of 133 this morning. Hypertension -Monitor vital signs and continue daily medication regimen with lisinopril 5 mg daily. Hypothyroidism -Continue daily medication regimen with levothyroxine 88 mcg daily. Mild persistent asthma -Albuterol nebulizers every 4 hours as needed for wheezing/shortness of breath and continue Singulair 10 mg daily. BPH -Continue Flomax 0.4 mg daily. Data and imaging reviewed: -Morning labs Reviewed. CBC showing macrocytic anemia with hemoglobin of 11.5 and MCV of 97.7. BMP showing sodium 133. Blood glucose 88. Liver profile showing elevated ALT of 77, total protein of 4.9, and albumin of 2.8. -Vital signs reviewed. Blood pressure 122/79, heart rate 64, respiratory rate 15, temp 97.7 SpO2 of 97% on room air. CODE STATUS: Full code DVT prophylaxis: Lovenox Discussed with: Patient, disease case manager, and RN Anticipated discharge date: Pending clinical course Anticipated discharge place: Home Patient was seen independently by Nurse Pracitioner. This document was prepared using [employer] dictation software. Please allow for errors in glass curvature gauger, while rare they do occur. Berhane Villanueva, PROFESSOR OF RELIGION rendered care for this patient independently, reviewed the findings and plan as documented in the note above and agree with plan. I did not physically speak with or examine the patient on this date. Objective - Vital Signs Vital signs: Vital Signs Temp 97.7 F 11/24/24 07:13 Pulse 64 11/24/24 07:13 Resp 15 11/24/24 07:13 BP 122/79 11/24/24 07:13 Pulse Ox 97 11/24/24 07:13 FiO2 Intake & Output 11/23/24 11/24/24 11/24/24 18:59 06:59 18:59 Other: Voiding Method Toilet Toilet # Voids 2 3 - Labs CBC & Chem 7: 11/24/24 03:36 11/24/24 03:36 Labs: Abnormal Lab Results - Last 24 Hours (Table) 11/24/24 11/24/24 Range/Units 03:36 03:36 RBC 3.54 L (4.40-5.60) X 10*6/uL Hgb 11.5 L (13.0-17.0) g/dL Hct 34.6 L (39.6-50.0) % MCV 97.7 H (80.0-97.0) FL MCH 32.5 H (27.0-32.0) pg Immature Gran # 0.08 H (0.00-0.04) X 10*3/uL Monocytes # 1.16 H (0.20-1.00) X 10*3/uL Sodium 133 L (137-145) mmol/L Creatinine 0.64 L (0.66-1.25) mg/dL Calcium 8.3 L (8.4-10.2) mg/dL ALT 77 H (4-49) U/L Total Protein 4.9 L (6.3-8.2) g/dL Albumin 2.8 L (3.5-5.0) g/dL Microbiology - Last 24 Hours (Table) 11/23/24 16:15 Gram Stain - Preliminary Other - Other
--- NOTE | 2024-11-25 12:56 | P.PN ---
Subjective Progress Note Date: 11/25/24 Patient is a pleasant 64-year-old male with a past medical history of hypertension, hyperlipidemia, hypothyroidism, mild persistent asthma, GERD, and obstructive sleep apnea CPAP dependent nightly. He presented to our facility on 11/22/24 secondary to throat pain and dysphagia. He was being treated outpatient with clindamycin for dental symptoms. Patient reports symptoms persistently worsened and he is now having swelling and pain in the back of his throat but he subjective low-grade fever, dysphagia and chills. Upon arrival to our facility, patient underwent evaluation in the emergency department. Vital signs upon arrival show blood pressure 159/95, heart rate 68, respiratory rate 18, temp 98.1 F, and SpO2 of 95% on room air. Labs completed and reviewed. CBC showing leukocytosis with WBC count of 13.30. Coagulation profile normal findings. BMP showing mild hyponatremia with sodium of 132 otherwise normal findings. Blood glucose 104. Lactic acid was 0.7. Magnesium slightly low at 1.7. Liver profile unremarkable. Group A strep PCR was negative. CT soft tissues now showing left palatine tonsil with increase in size and edematous changes concerning for early abscess/phlegmonous changes measuring up to 18 x 14 mm with mild narrowing of the oropharynx. 11/25 - He is seen and examined at bedside this morning, with no acute complaints. States that the pain has improved somewhat, however is still there intermittently. Feels as though she is provide to go home at this time and has follow-up scheduled with ENT as well as a dentist upon discharge. Discussed with him that we are waiting final cultures from his abscess I&D to help determine next course of action for antibiotic care. REVIEW OF SYSTEMS: Pertinent positives and negatives noted in HPI. Vital signs reviewed and stable. General: Nontoxic, no distress and appears stated age. Derm: Skin warm and dry, normal coloration for ethnicity. Head: Atraumatic, normocephalic and symmetric. Eyes: EOM's intact, no lid lag, and anicteric sclera Mouth: Poor dentition, multiple caries and missing teeth. Erythema and swelling of left tonsil. Cardiovascular: regular rate and rhythm with normal S1S2, no murmur, positive posterior tibial pulses bilaterally, and cap refill < 2 seconds. Lungs: Respirations even, regular, and unlabored on room air. Lungs CTA kyrie aterally, no rhonchi, no rales, no wheezing, and no accessory muscle usage. Abdominal: soft, nontender to palpation, no guarding, no appreciable organomegaly Ext: ROM intact. No gross muscle atrophy, no edema, no contractures Neuro: Speech clear, face symmetrical and CN II-XII grossly intact with no noted focal neuro deficits Psych: Alert and oriented to person, place, time, and situation. Appropriate and pleasant affect. Data Received Today: Labs: WBCs 8.02, hemoglobin 11.5 hematocrit 34.6, platelet 305; sodium 133, potassium 3.7, BUN 10, creatinine 0.64, calcium 8.3, phosphorus 4.4, magnesium 1.9, total bilirubin 0.5, AST 27, ALT 77, alkaline phosphatase 78 Imagining: No new imaging today Assessment and plan 64-year-old male with a past medical history of hypertension, hyperlipidemia, hypothyroidism, mild persistent asthma, GERD, and obstructive sleep apnea CPAP dependent nightly. He presented to our facility on 11/22/24 secondary to throat pain and dysphagia. He was being treated outpatient with clindamycin for dental symptoms. Patient reports symptoms persistently worsened and he is now having swelling and pain in the back of his throat but he subjective low-grade fever, dysphagia and chills. #Large Left peritonsillar abscess, failed outpatient treatment with clindamycin #Dysphagia, secondary oropharynx narrowing resulting from to above #Multiple dental caries -CT soft tissues now showing left palatine tonsil with increase in size and edematous changes concerning for early abscess/phlegmonous changes measuring up to 18 x 14 mm with narrowing of the oropharynx. -IV antibiotics discontinued; started on oral linezolid 600 mg twice daily and oral Flagyl 500 mg twice daily -ENT evaluated and performed I&D of left peritonsillar abscess on 11/23/24 with a documented removal of 7 to 8 mL of purulent aspirated drainage. Culture was obtained at this time and sent to lab for analysis. -Follow-up wound and blood culture results -Phenol Chloraseptic [place] every 2 hours as needed for sore throat -Toradol 15 mg IVP every 6 hours as needed for moderate pain, and morphine 4 mg IVP as needed for severe pain. -Patient tolerated clear liquid diet being advanced to regular diet, IV fluids discontinued at this time. -Recommend outpatient follow-up with [facility] for [facility] care. #Hyponatremia -Stable with sodium of 133 this morning. #Hypertension -Monitor vital signs and continue daily medication regimen with lisinopril 5 mg daily. #Hypothyroidism -Continue daily medication regimen with levothyroxine 88 mcg daily. #Mild persistent asthma -Albuterol nebulizers every 4 hours as needed for wheezing/shortness of breath and continue Singulair 10 mg daily. #BPH -Continue Flomax 0.4 mg daily. DVT ppx: Code status: Full code F: None E: Replete as needed N: Regular diet A: Ambulatory Anticipated discharge place: Home Anticipated discharge time: 24-48 hours Dictation was produced using [facility] dictation software. please excuse any grammatical, word or spelling errors. Brandyn Tiwari MD PGY-1 IM I have seen and evaluated the patient today. Discussed with the resident and agree with the residents finding and plan as documented in the resident's note. Changes highlighted in blue font. Objective - Vital Signs Vital signs: Vital Signs Temp 98.3 F 11/25/24 07:21 Pulse 63 11/25/24 08:15 Resp 15 11/25/24 08:15 BP 137/87 11/25/24 07:21 Pulse Ox 95 11/25/24 07:21 FiO2 Intake & Output 11/24/24 11/25/24 11/25/24 18:59 06:59 18:59 Other: Voiding Method Toilet Toilet Toilet # Voids 2 2 - Labs CBC & Chem 7: 11/24/24 03:36 11/24/24 03:36 Labs: Microbiology - Last 24 Hours (Table) 11/23/24 16:15 Gram Stain - Preliminary Other - Other Wound Culture - Preliminary 11/22/24 21:04 Blood Culture - Preliminary Blood
[2024-11-25] MEDS: LINEZOLID 600 MG TAB PO SCH (20:33)
[2024-11-25] MEDS: metroNIDAZOLE 500 MG TAB PO SCH (20:34)
[2024-11-26 02:26] VITALS: PULSE 59; RESP 16
[2024-11-26 06:13] LABS: Basophils # (A) 0.06 10*3/uL (0.00-0.10); Basophils % (A) 0.9 %; Eosinophils # (A) 0.16 10*3/uL (0.04-0.35); Eosinophils % (A) 2.4 %; HCT 38.4 % (39.6-50.0); Lymphocytes # (A) 1.69 10*3/uL (0.90-5.00); Lymphocytes % (A) 25.7 %; MCH 32.1 pg (27.0-32.0); MCHC 33.9 g/dL (32.0-37.0); MCV 94.8 fL (80.0-97.0); Mean Platelet Volume 8.9 fL (9.5-12.2); Monocytes # (A) 0.88 10*3/uL (0.20-1.00); Monocytes % (A) 13.4 %; Neutrophils # (A) 3.71 10*3/uL (1.80-7.70); Neutrophils % (A) 56.4 %; Platelet Count 366 10*3/uL (140-440); RBC 4.05 10*6/uL (4.40-5.60); RDW 12.3 % (11.5-14.5); WBC 6.58 10*3/uL (4.50-10.00)
[2024-11-26 06:29] LABS: ALT 75 U/L (4-49); AST 45 U/L (17-59); African American GFR (CKD) >90 (>60 ml/min/1.73 sqM); Albumin 3.2 g/dL (3.5-5.0); Albumin/Globulin Ratio 1.3; Alkaline Phosphatase 66 U/L (38-126); Anion Gap 7 mmol/L; Blood Urea Nitrogen 11 mg/dL (9-20); Carbon Dioxide 26 mmol/L (22-30); Chloride 100 mmol/L (98-107); Globulin 2.4 g/dL; Glucose 92 mg/dL (74-99); Non-African American GFR(CKD) >90 (>60 ml/min/1.73 sqM); Potassium 4.2 mmol/L (3.5-5.1); Sodium 133 mmol/L (137-145); Total Bilirubin 0.4 mg/dL (0.2-1.3); Total Protein 5.6 g/dL (6.3-8.2)
[2024-11-26] MEDS: PANTOPRAZOLE 40 MG TABLET PO SCH (06:41)
[2024-11-26 07:44] VITALS: BP 136/87; TEMP 98
--- NOTE | 2024-11-26 09:11 | P.DS ---
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 He presented to our facility on 11/22/24 secondary to throat pain and dysphagia. He was being treated outpatient with clindamycin for dental symptoms. Patient reports symptoms persistently worsened and he is now having swelling and pain in the back of his throat but he subjective low-grade fever, dysphagia and chills. Upon arrival to room facility, he underwent further evaluation emergency department. He had a CT soft tissue of his which showed left palatine tonsil increased size and edematous changes concerning for early abscess/phlegmonous changes measuring up to 18 x 14 mm with mild narrowing of the oropharynx. Additionally, group A strep PCR was taken, which was negative, and he was initiated on IV antibiotics with linezolid and Flagyl. On 11/23/24 he was evaluated by ENT and underwent incision and drainage of the left peritonsillar abscess intervention approximately 7-8 mL of purulent aspirate was drained, and a culture was obtained and sent to the lab for analysis. Wound culture the left peritonsillar abscess are shown to be negative on final culture, blood culture also taken his arrival to the emergency department which has been preliminarily negative. His IV antibiotics were transitioned to oral antibiotics. And he will be discharged to complete a course of approximately 14 days on antibiotics. He has further follow-up scheduled with the dentist/oral surgeon as well as an ENT outpatient as he is excited to further take care of any additional dental work needed. He is excited to be discharged today. Physical Exam: General: nontoxic, no distress, appears at stated age Derm: warm, dry, intact Head: atraumatic, normocephalic, symmetric Eyes: EOMI, anicteric sclera Mouth: no lip lesion, mucus membranes moist Cardiovascular: S1 S2 reg, no murmur, rubs, or gallops Lungs: CTA bilateral, no rales, no accessory muscle use Abdominal: soft, non-tender to palpataion, no appreciable organomegaly Extremities: no gross muscle atrophy, no edema, no contractures Neuro: Alert, Oriented, CNII-XII grossly intact, gait normal Psych: well appearing, appropriate affect Dictation was produced using [employer] dictation software. please excuse any grammatical, word or spelling errors. Brandyn Tiwari MD PGY-1 IM I have seen and evaluated the patient today. Discussed with the resident and agree with the residents finding and plan as documented in the resident's note. Changes highlighted in blue font. A total of 36 minutes of time were spent preparing this complex discharge summary. Patient was discharged on 11/26/2024 at 911. Patient Condition at Discharge: Fair Plan - Discharge Summary Discharge Rx Participant: Yes New Discharge Prescriptions: New metroNIDAZOLE [Flagyl] 500 mg PO BID #21 tab Linezolid [Zyvox] 600 mg PO Q12HR #21 tab Continue Lisinopril [Prinivil] 5 mg PO DAILY Levothyroxine Sodium [Levoxyl] 88 mcg PO DAILY Tamsulosin [Flomax] 0.4 mg PO DAILY Albuterol Inhaler [Ventolin Hfa Inhaler] 2 puff INHALATION RT-Q4H PRN PRN Reason: Shortness Of Breath Omeprazole [PriLOSEC] 40 mg PO DAILY Montelukast [Singulair] 10 mg PO DAILY Famotidine [Pepcid] 40 mg PO DAILY Rosuvastatin Calcium [Crestor] 40 mg PO HS Discontinued clindamycin HCL 300 mg PO QID #40 cap Discharge Medication List Levothyroxine Sodium [Levoxyl] 88 mcg PO DAILY 09/08/14 [History] Lisinopril [Prinivil] 5 mg PO DAILY 09/08/14 [History] Albuterol Inhaler [Ventolin Hfa Inhaler] 2 puff INHALATION RT-Q4H PRN 04/17/20 [History] Tamsulosin [Flomax] 0.4 mg PO DAILY 04/17/20 [History] Famotidine [Pepcid] 40 mg PO DAILY 11/23/24 [History] Montelukast [Singulair] 10 mg PO DAILY 11/23/24 [History] Omeprazole [PriLOSEC] 40 mg PO DAILY 11/23/24 [History] Rosuvastatin Calcium [Crestor] 40 mg PO HS 11/23/24 [History] Linezolid [Zyvox] 600 mg PO Q12HR #21 tab 11/26/24 [Rx] metroNIDAZOLE [Flagyl] 500 mg PO BID #21 tab 11/26/24 [Rx] Follow up Appointment(s)/Referral(s): Lalo Maher MD [Primary Care Provider] - 11/30/24 11:45 am Kade Gary MD [STAFF PHYSICIAN] - 12/03/24 11:00 am Patient Instructions/Handouts: Dental Cavities (GEN), Peritonsillar Abscess (DC), Mouth Care (DC) Activity/Diet/Wound Care/Special Instructions: Please be sure to follow up with your primary care physician, an ENT and your dentist within 1 week of discharge from the hospital. Note the following medication adjustments: NEW: Oral Linezolid 600 mg twice daily and Flagyl 500 mg twice daily for the next 10 days. Be sure to take one pill of each today, the day of discharge, this evening as you already received one dose here at the hospital. Discharge Disposition: HOME SELF-CARE
== END 2024-11-26 10:58 | disposition home or self-care (01) | DRG 144 ==
LOC: EC 19:24 → 4SSUR 23:30 → OBSVTOIN 23:30 → INTOOBSV 11-23 00:23 → 4SSUR 11-23 00:23 → UNDOADMOB 11-23 00:23 → OBSVTOIN 11-23 00:25 → INTOOBSV 11-23 00:25 → 4SSUR 11-23 01:07 → UNDODISOB 11-26 10:58 → UNDODISIN 11-26 10:58
PROVIDERS: ADMIT Internal Medicine; ATTEND Internal Medicine
PROC: 0C9P0ZZ Drainage of Tonsils, Open Approach (ICD-10-PCS; principal; 2024-11-23)
DX: J36 Peritonsillar abscess (principal); E87.1 Hypo-osmolality and hyponatremia; J45.30 Mild persistent asthma, uncomplicated; I10 Essential (primary) hypertension; E03.9 Hypothyroidism, unspecified; K21.9 Gastro-esophageal reflux disease without esophagitis; K02.9 Dental caries, unspecified; N40.0 Benign prostatic hyperplasia without lower urinary tract symptoms; R50.9 Fever, unspecified; M54.9 Dorsalgia, unspecified; D72.829 Elevated white blood cell count, unspecified; Z79.890 Hormone replacement therapy; L40.9 Psoriasis, unspecified; M19.90 Unspecified osteoarthritis, unspecified site; E78.5 Hyperlipidemia, unspecified; R13.12 Dysphagia, oropharyngeal phase; K04.7 Periapical abscess without sinus; Z79.899 Other long term (current) drug therapy; Z82.49 Family history of ischemic heart disease and other diseases of the circulatory system; Z87.891 Personal history of nicotine dependence; Z88.0 Allergy status to penicillin; Z88.2 Allergy status to sulfonamides; Z90.49 Acquired absence of other specified parts of digestive tract
CPT/HCPCS: 36415; 70491; 80048; 80053; 83605; 83735; 84100; 85025; 85610; 85730; 87040; 87070; 87205; 87651; 96361; 96365; 96366; 96367; 96375; 96376; 99285